=== PATIENT | female | born 1990 | race Caucasian/White ===

== ENCOUNTER 2020-05-23 08:37 | Outpatient (REF) | payer OTHER, SELFPAY ==
[2020-05-23 19:33] LABS: TSH (W/Ref FT4) 2.18 uIU/mL (0.36-3.74)
== END 2020-05-23 08:57 ==
LOC: NCHCN 08:37
PROVIDERS: Visit Provider Physician Assistant
DX: E03.9 Hypothyroidism, unspecified (principal)
CPT/HCPCS: 84443

== ENCOUNTER 2021-09-03 10:10 | Outpatient (REF) | payer BC, SELFPAY ==
[2021-09-03 19:45] LABS: Calculated LDL 79 mg/dL (<100); Cholesterol 165 mg/dL (<200); HDL Cholesterol 78 mg/dL (40-60); Triglyceride 44 mg/dL (<150)
== END 2021-09-03 10:11 | disposition home or self-care (01) ==
LOC: NCHCN 10:10
PROVIDERS: PCP Physician Assistant; Visit Provider Physician Assistant
DX: Z13.220 Encounter for screening for lipoid disorders (principal)
CPT/HCPCS: 80061

== ENCOUNTER 2021-12-14 15:12 | Outpatient (CLI) | payer BC, SELFPAY ==
[2021-12-14 09:23] LABS: FREE T4 0.92 ng/dL (0.76-1.46); TSH 2.76 uIU/mL (0.36-3.74)
== END 2021-12-14 15:13 | disposition home or self-care (01) ==
LOC: LBO 15:12
PROVIDERS: PCP Physician Assistant; Visit Provider Nurse Practitioner Family
DX: E03.9 Hypothyroidism, unspecified (principal)
CPT/HCPCS: 36415; 84439; 84443

== ENCOUNTER 2022-02-01 01:23 | Outpatient (CLI) | payer BC, SELFPAY ==
[2022-02-01 10:56] LABS: Abs Immature Grans 0.02 10^3/uL (0.0-0.06); Absolute Basophil Count 0.03 10^3/uL (0.0-0.2); Absolute Eosinophil Count 0.11 10^3/uL (0.0-0.7); Absolute Lymphocyte Count 1.58 10^3/uL (1.2-3.4); Absolute Neutrophil Count 5.62 10^3/uL (1.2-6.7); Basophils % 0.4; Eosinophils % 1.4; HCT 36.7 % (36.0-46.0); HGB 12.8 g/dL (11.2-15.7); Immature Grans % 0.3; Lymphocytes % 20.1; MCH 31.4 pg (27.0-33.0); MCHC 34.9 % (32.0-36.0); MCV 90 fL (80-95); MPV 9.4 fL (8.0-11.0); Monocytes % 6.4; Neutrophils % 71.4; Platelet Count 267 10^3/uL (130-400); RBC 4.08 10^6/uL (3.93-5.22); RDW 11.4 % (11.7-14.6); RDW-SD 37.2 fL; WBC 7.86 10^3/uL (4.4-10.8)
[2022-02-01 11:29] LABS: TSH 0.81 uIU/mL (0.36-3.74)
[2022-02-01 18:19] LABS: Thyroperoxidase Antibody <28 U/mL (<=60)
[2022-02-02 09:04] LABS: HIV-1/2 Ag & Ab Screen Negative (Negative)
[2022-02-04 10:01] LABS: Hepatitis B Surface Ag Negative (Negative)
[2022-02-04 10:31] LABS: Hepatitis C Ab w Rflx HCV PCR Negative (Negative)
[2022-02-04 11:05] LABS: Varicella IgG Antibody Positive (See Note)
[2022-02-04 11:20] LABS: Rubella IgG Ab (UVM) Positive (See Note)
[2022-02-04 15:35] LABS: Syphilis IgG w/Reflex Nonreactive (Nonreactive)
[2022-02-06 07:11] LABS: Specimen WB Whole Blood
[2022-02-07 08:53] LABS: Specimen WB Whole Blood
== END 2022-02-01 01:24 | disposition home or self-care (01) ==
LOC: LBO 01:23
PROVIDERS: Advanced Practice Midwife; PCP Physician Assistant; Visit Provider Obstetrics & Gynecology
DX: Z34.91 Encounter for supervision of normal pregnancy, unspecified, first trimester; R79.89 Other specified abnormal findings of blood chemistry
CPT/HCPCS: 36415; 81329; 86787; 86803; 86850; 86900; 86901; 87340; 87389; 81220; 84439; 84443; 85025; 86376; 86762; 86780

== ENCOUNTER 2022-02-01 18:29 | Outpatient (REF) | payer BC, SELFPAY ==
[2022-02-01 17:26] LABS: *AMPHETAMINES SCREEN URINE Negative (Negative); *BARBITURATES SCREEN URINE Negative (Negative); *BENZODIAZEPINES SCREEN URINE Negative (Negative); Cannabinoids THC Negative (Negative); Cocaine Screen,Urine Negative (Negative); METHADONE URINE SCREEN Negative (Negative); OPIATES URINE SCREEN Negative (Negative)
[2022-02-01 17:31] LABS: Tricyclic Antidepressants Negative (Negative)
[2022-02-04 14:52] LABS: Chlamydia Result Negative (Negative); GC Result Negative (Negative)
[2022-02-08 15:08] LABS: Buprenorphine Negative ng/mL (Cutoff: 5.0); Norbuprenorphine Negative ng/mL (Cutoff: 2.5)
== END 2022-02-01 18:30 | disposition home or self-care (01) ==
LOC: LBN 18:29
PROVIDERS: PCP Physician Assistant; Visit Provider Advanced Practice Midwife
DX: Z34.91 Encounter for supervision of normal pregnancy, unspecified, first trimester (principal)
CPT/HCPCS: 80307; 87491; 87591; 87086

== ENCOUNTER 2022-02-01 19:31 | Outpatient (REF) | payer BC, SELFPAY | END 2022-02-01 19:32 | disposition home or self-care (01) | LOC: LBN 19:31 | PROVIDERS: PCP Physician Assistant; Visit Provider Advanced Practice Midwife ==

== ENCOUNTER 2022-05-24 11:17 | Outpatient (CLI) | payer BC, SELFPAY ==
[2022-05-24 10:17] LABS: HGB 11.2 g/dL (11.2-15.7); MCH 30.7 pg (27.0-33.0); MCHC 33.9 % (32.0-36.0); MCV 90 fL (80-95); MPV 8.8 fL (8.0-11.0); Platelet Count 233 10^3/uL (130-400); RBC 3.65 10^6/uL (3.93-5.22); RDW 11.8 % (11.7-14.6); RDW-SD 38.9 fL; WBC 9.11 10^3/uL (4.4-10.8)
[2022-05-24 10:35] LABS: Glucose,1 Hr (Glucola) 90 mg/dL (80-140)
[2022-05-24 11:17] LABS: FREE T4 0.87 ng/dL (0.76-1.46); TSH 1.21 uIU/mL (0.36-3.74)
== END 2022-05-24 11:18 | disposition home or self-care (01) ==
LOC: LBO 11:19
PROVIDERS: Advanced Practice Midwife; PCP Physician Assistant; Visit Provider Advanced Practice Midwife
DX: Z34.93 Encounter for supervision of normal pregnancy, unspecified, third trimester (principal); E03.9 Hypothyroidism, unspecified
CPT/HCPCS: 36415; 82950; 85027; 86850; 90384; 84439; 84443

== ENCOUNTER 2022-07-24 08:53 | Outpatient (CLI) | payer BC, SELFPAY ==
[2022-07-24 08:59] VITALS: BP 138/76; PULSE 81; TEMP 36.8
[2022-07-24 09:03] VITALS: BP 138/76; PULSE 81
[2022-07-24 09:34] VITALS: BP 132/86; PULSE 74
--- NOTE | 2022-07-24 09:39 | W.OBNST ---
Date of service: 07/24/22 Time of Service: 09:39 NST Evaluation Reason for NST Reasons for Nonstress Test: OTHER, SEE COMMENT Reason for NST Other: headache Gestational Age Gestational Age in Weeks and Days: 36 Weeks and 3Days Test and Monitor Explained Test/Monitor Explained: Test Explained, Monitor Explained and Patient Verbalized Understanding Vital Signs Blood Pressure: 138/76 Pulse: 81 Temperature: 98.2 F Urine Results Urine Protein: Negative Urine Ketones: Negative Urine Glucose: Negative Urine Blood: Negative NST Information Date on Monitor: 07/24/22 Time on Monitor: 08:55 Date off Monitor: 07/24/22 Time off Monitor: 09:33 Total Time on Monitor: 38 NST Interventions: PO Hydration Contraction Frequency: 0 NST Evaluation Patient States Movement: Present FHR Baseline: 140 Variability: Moderate 6-25 bpm Accelerations: 15x15 Decelerations: None NST Results: Reactive Note N/A NST Note Note: NST is done for patient concern of HOLLAND and 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 Denies vision changes, swelling or RUQ pain. Baby is active and more so after PO hydration during NST. Urine protein is negative today. She reports by the time she came in for NST HOLLAND was improving as she took tylenol this morning. Has appointment in office in 2 days. Reviewed warning signs to call for. NST is reactive and reassuring and no BP higher than 140/90 obtained. NST Reviewed and Verified by: Aura Owens
[2022-07-24 09:41] VITALS: BP 138/76; PULSE 81; TEMP 36.8
== END 2022-07-24 09:38 | disposition home or self-care (01) ==
LOC: BCD 08:56 → OBS 08:58
PROVIDERS: PCP Physician Assistant; Visit Provider Advanced Practice Midwife
DX: O26.893 Other specified pregnancy related conditions, third trimester (principal); Z3A.36 36 weeks gestation of pregnancy
CPT/HCPCS: 59025

== ENCOUNTER 2022-07-26 18:02 | Outpatient (REF) | payer BC, SELFPAY ==
[2022-07-26 17:39] LABS: *AMPHETAMINES SCREEN URINE Negative (Negative); *BARBITURATES SCREEN URINE Negative (Negative); *BENZODIAZEPINES SCREEN URINE Negative (Negative); Cannabinoids THC Negative (Negative); Cocaine Screen,Urine Negative (Negative); METHADONE URINE SCREEN Negative (Negative); OPIATES URINE SCREEN Negative (Negative)
[2022-07-26 17:41] LABS: Tricyclic Antidepressants Negative (Negative)
[2022-08-02 11:57] LABS: Buprenorphine Negative ng/mL (Cutoff: 5.0); Norbuprenorphine Negative ng/mL (Cutoff: 2.5)
== END 2022-07-26 18:03 | disposition home or self-care (01) ==
LOC: LBN 18:02
PROVIDERS: Advanced Practice Midwife; PCP Physician Assistant; Visit Provider Advanced Practice Midwife
DX: Z34.90 Encounter for supervision of normal pregnancy, unspecified, unspecified trimester
CPT/HCPCS: 80307; 80348; 87081

== ENCOUNTER 2022-08-09 09:03 | Outpatient (CLI) | payer BC, SELFPAY ==
[2022-08-09 09:13] VITALS: BP 128/86; PULSE 71; TEMP 37
[2022-08-09 09:30] VITALS: BP 128/86; PULSE 71
[2022-08-09 10:00] LABS: COMMENT (LAB VIEW ONLY) 67.38 mg/dL; Prot/Crea Ur Ratio 0.17
--- NOTE | 2022-08-09 10:41 | W.OBNST ---
Date of service: 08/09/22 Time of Service: 10:41 NST Evaluation Reason for NST Reasons for Nonstress Test: GESTATIONAL HYPERTENSION Gestational Age Gestational Age in Weeks and Days: 38 Weeks and 5Days Test and Monitor Explained Test/Monitor Explained: Test Explained, Monitor Explained and Patient Verbalized Understanding Vital Signs Blood Pressure: 128/86 Pulse: 71 Temperature: 98.6 F Urine Results Urine Protein: Negative Urine Ketones: Negative Urine Glucose: Negative Urine Blood: Negative NST Information Date on Monitor: 08/09/22 Time on Monitor: 09:17 Date off Monitor: 08/09/22 Time off Monitor: 09:45 Total Time on Monitor: 28 NST Interventions: None NST Evaluation Patient States Movement: Present FHR Baseline: 135 Variability: Moderate 6-25 bpm Accelerations: 15x15 Decelerations: None NST Results: Reactive Note N/A NST Note Note: Urine prot/creat was 0.17 BP is normotensive Pt denies any sx, PE is nml F/up at regular pn appt in 1 wk NST Reviewed and Verified by: Chelsie Loera
[2022-08-09 10:42] VITALS: BP 128/86; PULSE 71; TEMP 37
== END 2022-08-09 09:45 | disposition home or self-care (01) ==
LOC: BCD 09:03 → OBS 09:11
PROVIDERS: PCP Physician Assistant; Visit Provider Advanced Practice Midwife
DX: O13.3 Gestational [pregnancy-induced] hypertension without significant proteinuria, third trimester (principal); Z3A.38 38 weeks gestation of pregnancy
CPT/HCPCS: 59025; 82565; 84156

== ENCOUNTER 2022-08-22 22:15 | Inpatient (IN) | payer BC, SELFPAY ==
[2022-08-22] VITALS (9 sets, daily range): BP systolic 143–147; BP diastolic 91–93; PULSE 67–84; TEMP 36.8; O2SAT 98–100
[2022-08-22 23:36] LABS: Source Nasal/Nares
[2022-08-22 23:38] LABS: HCT 36.3 % (36.0-46.0); HGB 12.3 g/dL (11.2-15.7); MCH 29.9 pg (27.0-33.0); MCHC 33.9 % (32.0-36.0); MCV 88 fL (80-95); MPV 11.4 fL (8.0-11.0); Platelet Count 162 10^3/uL (130-400); RBC 4.12 10^6/uL (3.93-5.22); RDW 12.4 % (11.7-14.6); RDW-SD 40.2 fL; WBC 14.58 10^3/uL (4.4-10.8)
--- NOTE | 2022-08-22 23:40 | HPE_ITS ---
Date of service: 08/22/22 Time of Service: 23:40 Assessment and Plan Assessment and plan (1) Spontaneous onset of labor: Status: Acute Assessment and plan: Admit to Center. Comfort measures. Covid- 19 test. Anticipate . (2) Gestational hypertension: Status: Acute Assessment and plan: CMP drawn with CBC. Will continue to monitor BP OB-HPI Labor/Delivery History of Present Illness Reason for Visit: Labor Chief Complaint: Uterine Contractions. MIO Calculator Estimated Delivery Date Method Current WG Current Estimate 08/18/22 LMP (Certain) 40w 4d Other Estimates 08/22/22 Ultrasound #1 40w 0d Comments: Janet called at 2100 with a report of regular contractions. She arrived at 2200 at the center in active labor. SVE by RN. She began feeling an urge to push and was re-examined by RN. No cervical change /-1 History of Present Expected Delivery Route/Plan - CNM FOB/ - Sukhjinder Hernandez Doesn't want to know gender, if male if circ GBS neg Specific Issues/Plan 1. Pt's sister has CF; Will do CF testing with initial labs 1a. SMA neg. Pt is CF carrier screen+; FOB tested 02/13 and is negative 2. Hypothyroidism - On Levothyroxine: Check labs q trimester with TPO due to TSH 2.76 2a. TSH -0.81 , T4- 0.91, TPO=nml @ 11 wks (<28) 3. Depression - on Sertraline. Pt decreased her dose from 50 mg to 25 mg qd (03/01) 4. History of abnormal pap -most recent WNL at [facility]. Awaiting records from [facility] 5. Rh neg, Rhogam at 28 weeks done 6. COVID vaccinated x2, declined booster, is required to get booster for work- letter written to decline. 7. BMI 30.0 at initial OB, declines early glucola after informed choice discussion 8. Right vulvar varicosity noted @ 30 wks, advised V2 Supporter [facility] All Active Problems (Updated 08/22/22 @ 23:43 by Aura Worley CNM) Gestational hypertension (Acute) Spontaneous onset of labor (Acute) Cystic fibrosis carrier, antepartum (Acute) Rh negative state in antepartum period (Acute) History of abnormal cervical Pap smear (Acute) Elevated TSH (Acute) (Acute) Acquired hypothy[facility] (Acute) [facility] Medical History (Updated 08/22/22 @ 23:43 by Aura Worley CNM) Asthma Depression Family history of colon cancer Father Dx at 55 and Family history of cystic fibrosis sister Positive test Surgical History (Updated 12/14/21 @ 10:45 by Lizabeth Hernández NP) S/P tonsillectomy and adenoidectomy 2012 Family History (Updated 06/07/22 @ 09:34 by Aura Worley CNM) Father Colon cancer Hypertension Mother [place]'s disease Gestational hypertension Sister Cystic fibrosis Paternal Grandmother Hypothyroid Stomach cancer Paternal Grandfather Stroke Maternal Aunt Hypothyroid Social History Smoking/Tobacco Use Status: Never Smoking risk assessment performed?: Yes Do you feel safe at home: Yes Do you feel safe in your relationship?: Yes History History 1 Para 0 Hx # Term Pregnancies 0 Multiple births 0 Hx # Pregnancies 0 Ectopic pregnancies 0 AB induced 0 Hx Number of Living Children 0 AB spontaneous 0 Meds Allergies and Home Medications Allergies Allergy/AdvReac Type Severity Reaction Status Date / Time Penicillins Allergy rash Verified 08/09/22 08:32 Home Medications Medication Instructions Recorded Confirmed Type prenat.vits,maria teresa,[id number] 1 tab PO DAILY 12/14/21 08/16/22 History sertraline 50 mg tablet 25 mg PO DAILY #30 tabs 03/01/22 08/16/22 Rx albuterol sulfate 90 mcg/actuation 2 puff inhalation Q6H PRN 05/24/22 08/16/22 Rx aerosol inhaler shortness of breath or wheezing #6.7 grams levothyroxine 100 mcg tablet See Rx Instructions .Route 05/24/22 08/16/22 Rx .COMPLEX #30 tabs famotidine 20 mg tablet (Pepcid) 20 mg PO DAILY #60 tabs 07/26/22 08/16/22 Rx Exam Physical Exam Vital signs: Temp Pulse BP Pulse Ox 98.2 F 72 147/93 H 98 08/22/22 23:23 08/22/22 23:23 08/22/22 23:23 08/22/22 23:23 Detailed Labor and Delivery Exam Dilation: 7 Effacement (%): 90 station: -1 Consistency: soft Gruber Score: Cervical Points Exam 0 1 2 3 Dilation Closed 1-2cm 3-4 cm 5-6cm Effacement 0-30% 40-50% 60-70% 80% Consistency Firm Medium Soft Station -3 -2 -1,0 +1,+2 Position Posterior Mid Anterior Amniotic Membrane Status: Intact Monitor Mode: External Contraction Frequency(min): every 2 -3 Contraction Duration(sec): 50 Contraction Intensity: Strong Fetus A Heart Rate Baseline: 130 Monitor Accelerations: 15 X 15 Monitor Decelerations: None Variability: Moderate (6-25 BPM) Presentation: Vertex Categories: Category I Cardiovascular Exam Cardiovascular Exam: Normal Abdominal Exam Abdominal Exam: Normal Exam Exam: Normal Extremities Exam Extremities Exam: Normal Skin Exam Skin Exam: Normal Psychiatric Exam Psychiatric Exam: Normal Risk Assessment Risk for Shoulder Dystocia Historical/Initial OB: POSITIVE FOR: Pre- BMI>30; NEGATIVE FOR: Pelvic Abnormality, Previous Shoulder Dystocia or Previous Macrosomia Delivery Plan @ 36wks: spont labor, Risk for Pre-Eclampsia Date Initiated/Initials: KM Yes, if 2 or more: POSITIVE FOR: Nulliparity; NEGATIVE FOR: Age>= 35 yrs, >10yr btwn pregnancies, BMI>30, ethinicty, Mother/Sister w/ Pre-E or Previous IUGR Risk for Post- Hemorrhage Initial: NEGATIVE FOR: Multiple Gestation, Previous PPH, Known Clotting Deficiency, Grand Multiparity or Anticoagulation Counseled re: Active Management: Yes Risks Reviewed Risks Reviewed Upon Admission: Yes
[2022-08-22 23:55] LABS: ALT 17 U/L (14-59); AST 21 U/L (15-37); Albumin 2.9 g/dL (3.4-5.0); Alkaline Phosphatase 240 U/L (46-116); Anion Gap 12.6 mmol/L (3-11); BUN 12 mg/dL (7-18); Bilirubin, Total 0.2 mg/dL (0.2-1.0); CO2 20.4 mmol/L (21.0-32.0); CREATININE 0.9 mg/dL (0.55-1.02); Calcium 9.2 mg/dL (8.5-10.1); Chloride 101 mmol/L (98-107); Estimated GFR 87.65 (mL/min/1.73m2); Glucose 97 mg/dL (74-106); Potassium 3.9 mmol/L (3.5-5.1); Sodium 134 mmol/L (136-145); Total Protein 6.6 g/dL (6.4-8.2)
[2022-08-23] VITALS (18 sets, daily range): BP systolic 124–192; BP diastolic 62–91; PULSE 63–104; RESP 17; TEMP 36.5–37.1; O2SAT 98–100
[2022-08-23 00:08] LABS: COVID-19 PCR Negative (Negative)
[2022-08-23] MEDS: Oxytocin 10 UNITS/ML VIAL IM (03:10)
[2022-08-23] MEDS: miSOPROStol 200 MCG TAB 400 MCG SL (03:30)
--- NOTE | 2022-08-23 03:33 | PGE_ITS ---
Date of service: 08/23/22 Time of Service: 02:00 Pelvic Exam Dilation: 10 station: +1 Pooling: Positive Contractions Monitor Mode: External Contraction Frequency(min): every 3 min Contraction Duration(sec): 60 Intensity: Strong Fetus A Monitor: Doppler Heart Rate Baseline: 150 Presentation: Vertex Decelerations: None Assessment and Plan Assessment and plan (1) Spontaneous onset of labor: Status: Acute Assessment and plan: Assist with pushing and anticipate . (2) Gestational hypertension: Status: Acute Assessment and plan: BP 130s/80s with relaxation, will continue to monitor. CMP WNL Objective Abnormal lab results 08/22/22 08/22/22 Range/Units 23:24 23:24 WBC 14.58 H (4.4-10.8) 10^3/uL MPV 11.4 H (8.0-11.0) fL Sodium 134 L (136-145) mmol/L Carbon Dioxide 20.4 L (21.0-32.0) mmol/L Anion Gap 12.6 H (3-11) mmol/L Alkaline Phosphatase 240 H (46-116) U/L Albumin 2.9 L (3.4-5.0) g/dL Temp Pulse BP Pulse Ox 98.1 F 93 H 142/66 H 100 08/23/22 03:14 08/23/22 03:22 08/23/22 03:15 08/23/22 03:22 Laboratory Results WBC 14.58 10^3/uL (4.4-10.8) H 08/22/22 23:24 RBC 4.12 10^6/uL (3.93-5.22) 08/22/22 23:24 Hgb 12.3 g/dL (11.2-15.7) 08/22/22 23:24 Hct 36.3 % (36.0-46.0) 08/22/22 23:24 MCV 88 fL (80-95) 08/22/22 23:24 MCH 29.9 pg (27.0-33.0) 08/22/22 23:24 MCHC 33.9 % (32.0-36.0) 08/22/22 23:24 RDW 12.4 % (11.7-14.6) 08/22/22 23:24 Plt Count 162 10^3/uL (130-400) 08/22/22 23:24 MPV 11.4 fL (8.0-11.0) H 08/22/22 23:24 Sodium 134 mmol/L (136-145) L 08/22/22 23:24 Potassium 3.9 mmol/L (3.5-5.1) 08/22/22 23:24 Chloride 101 mmol/L (98-107) 08/22/22 23:24 Carbon Dioxide 20.4 mmol/L (21.0-32.0) L 08/22/22 23:24 Anion Gap 12.6 mmol/L (3-11) H 08/22/22 23:24 BUN 12 mg/dL (7-18) 08/22/22 23:24 Creatinine 0.9 mg/dL (0.55-1.02) 08/22/22 23:24 Est GFR (CKD-EPI 2020) 87.65 (mL/min/1.73m2) 08/22/22 23:24 Glucose 97 mg/dL (74-106) 08/22/22 23:24 Calcium 9.2 mg/dL (8.5-10.1) 08/22/22 23:24 Total Bilirubin 0.2 mg/dL (0.2-1.0) 08/22/22 23:24 AST 21 U/L (15-37) 08/22/22 23:24 ALT 17 U/L (14-59) 08/22/22 23:24 Alkaline Phosphatase 240 U/L (46-116) H 08/22/22 23:24 Total Protein 6.6 g/dL (6.4-8.2) 08/22/22 23:24 Albumin 2.9 g/dL (3.4-5.0) L 08/22/22 23:24 COVID-19 Source Nasal/Nares 08/22/22 23:30 SARS-CoV-2 (PCR) Negative (Negative) 08/22/22 23:30 Patient ABO/Rh O Negative 08/22/22 23:24 Antibody Screen POSITIVE 08/22/22 23:24 Antibody Identification Anti-D 08/22/22 23:24 Subjective Interval history since last seen: Janet progressed well and used the shower and position changes for comfort. She had an urge to push in the shower and returned to bed. She was examined and was 9 cms dilated. Membranes ruptured spontaneously for a moderate amount of clear fluid. She began bearing down and moved to [facility] toilet after she was fully dilated and began pushing actively. Results Hemoglobin/Hematocrit: Hgb 12.3 g/dL (11.2-15.7) 08/22/22 23:24 Hct 36.3 % (36.0-46.0) 08/22/22 23:24 Abnormal Lab Findings: Abnormal Labs 08/22/22 08/22/22 23:24 23:24 WBC 14.58 H MPV 11.4 H Sodium 134 L Carbon Dioxide 20.4 L Anion Gap 12.6 H Alkaline Phosphatase 240 H Albumin 2.9 L
--- NOTE | 2022-08-23 03:38 | OBVDS_ITS ---
Date of service: 08/23/22 Time of Service: 03:38 OB Labor/ Delivery Information Baby A Delivery Delivery Method: Spontaneaous Presentation: Vertex Vertex Position: Left Occipital Anterior Amniotic Fluid: Clear Estimated Blood Loss: 350 Delivery Outcome: Liveborn Infant Transferred: Remains with Mother Note: FHTs 150s during first stage of labor. FHTs 150s in second stage. Janet began pushing well. Second stage huddle was done. Spontaneous delivery of female infant delivered in JADE position. Baby was placed on mother's abdomen and dried and stimulated. She had a pontaneous cry. Cord was clamped and cut by July K[place]. The placenta delivered spontaneously and appears to by intact with a three vessel cord. Pitocin 10 units IM was administered before delivery of the placenta. The perineum was inspected and a first degree vaginal laceration was noted with a superficial left labial extension and bilateral periurethral lacerations . The baby did breastfeed. There was some bright bleeding and cytotec 400 mcg was given PO and straight catheterized for a small amount of urine. After delivery, Mother and baby and father of the baby were stable and bonding well in the delivery room and there were no complications. Post B.P. 142/66. Will continue to assess B.P. readings in the post period. Providers Nurse [employer]: Aura Worley Nurse: July Loera Nurse: Nhi Torres Labor/Delivery Information Number of Babies in Womb: 1 Steroids Given: None Reason Steroids Not Administered: N/A Group Beta Strep: Negative Antibiotics Administered: No Rubella Status: Immune Blood Type: O- Varicella Immunity: Immune Maternal Complications: None Shoulder Dystocia: No Stages of Labor Onset of Labor Date: 08/22/22 Onset of Labor Time: 16:00 ROM Baby A: 08/23/22 ROM Baby A: 01:25 ROM Total Time- Baby A: [id number] Delivery Date-Baby A: 08/23/22 Delivery Time-Baby A: 02:59 Placenta Delivery Date-Baby A: 08/23/22 Placenta Delivery Time-Baby A: 03:09 Labor-Stage 3 Duration: 10 minutes Total Length of Labor-Baby A: 10 hours and 59 minutes Placenta Cultured: No Placenta Status: Delivered Baby A Gender: Female Gestational Status: Term (39-41.6 wks) Gestational Age in Weeks/Days: 40 Weeks and 5 Days Score-1 Minute Interval(Baby A) Heart Rate-1 minute: 100 BPM or Greater Respiratory Effort- 1 minute: Spontaneous/Strong Cry Muscle Tone-1 minute: Active Movement Reflex Response-1 minute: Prompt Response Color-1 minute: Pallor or Cyanosis Total Score-1 minute: 8 Score-5 Minute Interval(Baby A) Heart Rate- 5 minute: 100 BPM or Greater Respiratory Effort-5 minute: Spontaneous/Strong Cry Muscle Tone-5 minute: Active Movement Reflex Response-5 minute: Prompt Response Color-5 minute: Bluish Hands or Feet Total Score- 5 minute: 9 Interventions Repair of Laceration Type: Other (vaginal with superficial left labial extension, bilateral periurethral lacerations not repaired), Laceration Extension: First Degree.
[2022-08-23] MEDS: Hamamelis Leaf/Glycerin 100 EACH BOX PR (04:26)
[2022-08-23] MEDS: Dibucaine 1% 28 GM TUBE TP (04:27)
[2022-08-23] MEDS: Ibuprofen 600 MG TAB PO (15:23)
[2022-08-23] MEDS: Docusate Sodium 100 MG CAP PO (20:06)
[2022-08-24] MEDS: Ibuprofen 600 MG TAB PO (05:47)
[2022-08-24 06:05] LABS: HGB 11.4 g/dL (11.2-15.7); MCH 30.3 pg (27.0-33.0); MCHC 33.5 % (32.0-36.0); MCV 90 fL (80-95); MPV 11.2 fL (8.0-11.0); Platelet Count 152 10^3/uL (130-400); RBC 3.76 10^6/uL (3.93-5.22); RDW-SD 42.5 fL; WBC 10.74 10^3/uL (4.4-10.8)
[2022-08-24 08:00] VITALS: BP 138/94; PULSE 68; RESP 16; TEMP 36.4; O2SAT 99
--- NOTE | 2022-08-24 10:35 | DSE_ITS ---
Date of service: 08/24/22 Time of Service: 10:36 DS: Diagnosis Discharge Diagnosis (1) Spontaneous onset of labor: Status: Acute Asessment and Plan: Janet requests discharge at 24 hours of age. Her baby is discharged. Caring for baby independently. Pain is managed well with oral analgesics. Voiding without difficulty. with some pain and trauma to her nipples A - stable mother and baby , Post day 1, History of depression P - Discharge to home today. Routine post instructions. [facility] (2) Gestational hypertension: Status: Acute Asessment and Plan: BP yesterday was 124-138/62-88. BP last evening was 134/91 and this morning 138/94. We reviewed signs of preeclampsia. Repeat BP was 134/87. Janet was instructed to come to the [facility] for BP check in 3 days. (3) disorder, condition: Status: Acute Asessment and Plan: Janet has been experiencing bleeding of her nipples but was able to latch the baby well today without pain or further trauma. She declines visit with Mary Vigil today. She feels confident with feeding plan reviewed with Mary yesterday. She is pumping and using a nipple shield for sore nipples. We discussed positioning to avoid sore nipples and all purpose nipple cream if no imrpovement (4) Depression: Asessment and Plan: History of depression treated with sertraline 25 mg daily. We Discussed signs of post depression. Janet would like to continue sertraline 25 mg po daily and will consider increasing dose if she experiences depression symptoms. Discharge Plan Disposition Patient Disposition: Home Condition: Good Discharge Details Reason For Visit: Labor Admit Date/Time: 08/22/22 22:15 Admit Provider: Aura Worley Attending Provider: Aura Worley Primary Care Provider: Car Garibay Home Meds and New Rx's Prescriptions: No Action prenat.vits,maria teresa,[id number] Tablet 1 tab PO DAILY sertraline 50 mg tablet 25 mg PO DAILY Qty: 30 3RF levothyroxine 100 mcg tablet See Rx Instructions .ROUTE .COMPLEX Qty: 30 3RF Dose Instruction: TAKE ONE TABLET BY MOUTH EVERY DAY Rx Instructions: TAKE ONE TABLET BY MOUTH EVERY DAY albuterol sulfate 90 mcg/actuation HFA aerosol inhaler 2 puff inhalation Q6H PRN (Reason: shortness of breath or wheezing) Qty: 6.7 0RF famotidine [Pepcid] 20 mg tablet 20 mg PO DAILY Qty: 60 2RF Discharge Instructions Stand Alone Forms: BC Instructions, BC Post Vaginal Deliver Activity:: Activity as Tolerated Equipment/Supplies:: No Equipment Needed Diet:: As Tolerated Discharge Orders Discharge Orders: Discharge Order (Routine); Ordered 08/24/22 Ordered By: Aura Worley OB:DS Summary Summary Vaginal Delivery Method: Spontaneaous Laceration Description: Other (vaginal with superficial left labial extension, bilateral periurethral lacerations not repaired) Laceration Extension: First Degree Contraception Discussed Contraception Discussed: Yes Contraceptive Plan: Control Pill/Patch, Leopold Gender-Baby A: Female weight: 7 lb 13.575 oz Status at Discharge Functional status at discharge: independent ambulation Overall status at discharge: patient is back to baseline Mental Status: mental status grossly normal Speech and Movement: speech and movement normal Mood: congruent mood Affect: normal affect Exam Physical Exam Vital signs: Temp Pulse Resp BP Pulse Ox 97.5 F L 68 16 138/94 H 99 08/24/22 08:00 08/24/22 08:00 08/24/22 08:00 08/24/22 08:00 08/24/22 08:00 Neck Exam Neck Exam: Normal Respiratory Exam Respiratory Exam: Normal Cardiovascular Exam Cardiovascular Exam: Normal Abdominal Exam Comments: non tender Fundal Exam Fundus: Below Umbilicus and Firm (down 2) Rectal Exam Comments: small cluster of hemorrhoids Exam Perineum: Bruising and Intact Comments: no edema. Extremities Exam Extremity Exam: Edema (trace) Skin Exam Skin Exam: Abnormal (petechii on face and in sclera bilaterally related to intense pushing) Psychiatric Exam Psychiatric Exam: Normal PFSH All Active Problems (Updated 08/24/22 @ 10:39 by Aura Worley CNM) disorder, condition (Acute) Gestational hypertension (Acute) Spontaneous onset of labor (Acute) Cystic fibrosis carrier, antepartum (Acute) Rh negative state in antepartum period (Acute) History of abnormal cervical Pap smear (Acute) Elevated TSH (Acute) (Acute) Acquired hypothyroidism (Acute) treated by Car Garib[facility]. Medical History (Updated 08/24/22 @ 10:39 by Aura Worley CNM) Asthma Depression Family history of colon cancer Father Dx at 55 and Family history of cystic fibrosis sister Positive test Surgical History (Updated 12/14/21 @ 10:45 by Lizabeth Hernández NP) S/P tonsillectomy and adenoidectomy 2013 Family History (Updated 06/07/22 @ 09:34 by Aura Worley CNM) Father Colon cancer Hypertension Mother [place]'s disease Gestational hypertension Sister Cystic fibrosis Paternal Grandmother Hypothyroid Stomach cancer Paternal Grandfather Stroke Maternal Aunt Hypothyroid Social History Smoking/Tobacco Use Status: Never Smoking risk assessment performed?: Yes Do you feel safe at home: Yes Do you feel safe in your relationship?: Yes History History 1 Para 0 Hx # Term Pregnancies 0 Multiple births 0 Hx # Pregnancies 0 Ectopic pregnancies 0 AB induced 0 Hx Number of Living Children 0 AB spontaneous 0 DS: Data Vitals/I&O Vitals and I&O: Vital Signs Temperature 97.5 F L 08/24/22 08:00 Pulse 68 08/24/22 08:00 Pulse Rhythm Regular 08/24/22 08:00 Respiratory Rate 16 08/24/22 08:00 Respiratory Depth Normal 08/23/22 19:20 Blood Pressure 138/94 H 08/24/22 08:00 Blood Pressure Mean 108 08/24/22 08:00 Pulse Oximetry 99 08/24/22 08:00 Pain Level 2 08/24/22 05:47 Intake & Output 08/23/22 08/23/22 08/24/22 11:59 23:59 11:59 Output Total 1800 / 1800 Balance -1800 / -1800 Output: Urine 1800 / 1800 Data Completed and Pending Labs on day of discharge: Labs from last 24 hours 08/24/22 08/22/22 05:42 23:24 WBC 10.74 RBC 3.76 L Hgb 11.4 Hct 34.0 L MCV 90 MCH 30.3 MCHC 33.5 RDW 13.0 Plt Count 152 MPV 11.2 H Patient ABO/Rh O Negative Antibody Screen POSITIVE Antibody Identification Anti-D Rhogam Unit Number [id number] Unit Expiration Date 07/26/2023 Product Lot # [id number]
[2022-08-24 10:39] VITALS: BP 134/87
[2022-08-24 12:05] VITALS: BP 132/89
== END 2022-08-24 13:34 | disposition home or self-care (01) | DRG 806 ==
LOC: OBS 22:52
PROVIDERS: Admitting Provider Advanced Practice Midwife; PCP Physician Assistant; Visit Provider Advanced Practice Midwife
DX: O14.94 Unspecified pre-eclampsia, complicating childbirth (principal); O36.0930 Maternal care for other rhesus isoimmunization, third trimester, not applicable or unspecified; Z37.0 Single live birth; Z3A.40 40 weeks gestation of pregnancy; O87.8 Other venous complications in the puerperium; O99.284 Endocrine, nutritional and metabolic diseases complicating childbirth; E03.9 Hypothyroidism, unspecified; O99.344 Other mental disorders complicating childbirth; F32.A Depression, unspecified; O70.0 First degree perineal laceration during delivery; O99.52 Diseases of the respiratory system complicating childbirth; J45.909 Unspecified asthma, uncomplicated; O75.89 Other specified complications of labor and delivery; Z14.1 Cystic fibrosis carrier; O92.79 Other disorders of lactation
CPT/HCPCS: 36415; 80053; 85027; 85461; 86850; 86900; 86901; 87635; 90384; 86870; G0378; J2590; J2790

== ENCOUNTER 2022-08-26 13:55 | Outpatient (CLI) | payer BC, SELFPAY ==
[2022-08-26 13:41] LABS: HCT 33.4 % (36.0-46.0); HGB 11.3 g/dL (11.2-15.7); MCH 30.3 pg (27.0-33.0); MCHC 33.8 % (32.0-36.0); MCV 90 fL (80-95); MPV 9.6 fL (8.0-11.0); Platelet Count 249 10^3/uL (130-400); RBC 3.73 10^6/uL (3.93-5.22); RDW 12.8 % (11.7-14.6); RDW-SD 41.8 fL; WBC 10.43 10^3/uL (4.4-10.8)
[2022-08-26 13:56] LABS: ALT 53 U/L (14-59); AST 65 U/L (15-37); Albumin 2.8 g/dL (3.4-5.0); Alkaline Phosphatase 143 U/L (46-116); Anion Gap 7.3 mmol/L (3-11); BUN 13 mg/dL (7-18); Bilirubin, Total 0.2 mg/dL (0.2-1.0); CO2 27.7 mmol/L (21.0-32.0); CREATININE 0.8 mg/dL (0.55-1.02); Chloride 105 mmol/L (98-107); Estimated GFR 100.96 (mL/min/1.73m2); Glucose 84 mg/dL (74-106); Potassium 4.1 mmol/L (3.5-5.1); Sodium 140 mmol/L (136-145); Total Protein 6.6 g/dL (6.4-8.2)
== END 2022-08-26 13:56 | disposition home or self-care (01) ==
LOC: LBO 13:56
PROVIDERS: PCP Physician Assistant; Visit Provider Advanced Practice Midwife
DX: O13.5 Gestational [pregnancy-induced] hypertension without significant proteinuria, complicating the puerperium (principal)
CPT/HCPCS: 36415; 80053; 85027

== ENCOUNTER 2022-08-27 10:12 | Outpatient (CLI) | payer BC, SELFPAY ==
[2022-08-27] VITALS (8 sets, daily range): BP systolic 117–161; BP diastolic 74–93; PULSE 68–80
[2022-08-27 10:35] LABS: HCT 35.5 % (36.0-46.0); HGB 11.9 g/dL (11.2-15.7); MCH 30.3 pg (27.0-33.0); MCHC 33.5 % (32.0-36.0); MCV 90 fL (80-95); MPV 9.4 fL (8.0-11.0); Platelet Count 256 10^3/uL (130-400); RBC 3.93 10^6/uL (3.93-5.22); RDW 12.9 % (11.7-14.6); RDW-SD 41.9 fL; WBC 8.57 10^3/uL (4.4-10.8)
[2022-08-27 10:51] LABS: ALT 47 U/L (14-59); AST 45 U/L (15-37); Alkaline Phosphatase 146 U/L (46-116); Anion Gap 9.7 mmol/L (3-11); BUN 11 mg/dL (7-18); Bilirubin, Total 0.3 mg/dL (0.2-1.0); CO2 25.3 mmol/L (21.0-32.0); CREATININE 0.8 mg/dL (0.55-1.02); Calcium 9.1 mg/dL (8.5-10.1); Chloride 105 mmol/L (98-107); Estimated GFR 100.96 (mL/min/1.73m2); Glucose 71 mg/dL (74-106); Potassium 4.1 mmol/L (3.5-5.1); Sodium 140 mmol/L (136-145); Uric Acid 5.7 mg/dL (2.6-6.0)
--- NOTE | 2022-08-27 11:18 | W.PM.HP.N ---
Date of service: 08/27/22 Time of Service: 11:18 Assessment and Plan Assessment and plan (1) Gestational hypertension: Status: Acute Assessment and plan: Admit to observation to monitor BP. Consultation with Dr Mcgill and labetalol 200 mg BID was recommended. Continue to assess response to medication. History of Present Illness History of Present Illness Chief Complaint: hypertension, 4 days post Narrative: Janet is here for B.P. evaluation. She was seen at the [facility] office yesterday for BP check and labs. AST was elevated at 65. All other labs were WNL. She returns today for BP check and labs.. AST has decreased to 45 today. Other labs are WNL. BP today was 145/88 on arrival. She became teary-eyed due to the stress and overwhelmed feeling she has been experiencing about her B.P. Follow up B.P.s were 161/93 and 153/91. [facility] All Active Problems (Updated 08/27/22 @ 12:14 by Kala Mcgill DO) Pre-eclampsia affecting puerperium (Acute) disorder, condition (Acute) Gestational hypertension (Acute) Cystic fibrosis carrier, antepartum (Acute) Rh negative state in antepartum period (Acute) History of abnormal cervical Pap smear (Acute) Elevated TSH (Acute) (Acute) Acquired hypothyroidism (Acute) [facility] Medical History (Updated 08/27/22 @ 12:14 by Kala Mcgill DO) Asthma Depression Family history of colon cancer Father Dx at 55 and Family history of cystic fibrosis sister Positive test Surgical History (Updated 12/14/21 @ 10:45 by Lizabeth Hernández NP) S/P tonsillectomy and adenoidectomy 2013 Family History (Updated 06/07/22 @ 09:34 by Aura Worley CNM) Father Colon cancer Hypertension Mother [place]'s disease Gestational hypertension Sister Cystic fibrosis Paternal Grandmother Hypothyroid Stomach cancer Paternal Grandfather Stroke Maternal Aunt Hypothyroid Social History Smoking/Tobacco Use Status: Never Smoking risk assessment performed?: Yes Do you feel safe at home: Yes Do you feel safe in your relationship?: Yes History History 1 Para 0 Hx # Term Pregnancies 0 Multiple births 0 Hx # Pregnancies 0 Ectopic pregnancies 0 AB induced 0 Hx Number of Living Children 0 AB spontaneous 0 Meds Allergies and Home Medications Allergies Allergy/AdvReac Type Severity Reaction Status Date / Time Penicillins Allergy rash Verified 08/26/22 13:14 Home Medications Medication Instructions Recorded Confirmed Type prenat.vits,maria teresa,[id number] 1 tab PO DAILY 12/14/21 08/27/22 History sertraline 50 mg tablet 25 mg PO DAILY #30 tabs 03/01/22 08/27/22 Rx albuterol sulfate 90 mcg/actuation 2 puff inhalation Q6H PRN 05/24/22 08/27/22 Rx aerosol inhaler shortness of breath or wheezing #6.7 grams levothyroxine 100 mcg tablet See Rx Instructions .Route 05/24/22 08/27/22 Rx .COMPLEX #30 tabs famotidine 20 mg tablet (Pepcid) 20 mg PO DAILY #60 tabs 07/26/22 08/27/22 Rx labetalol 200 mg tablet 200 mg PO BID #60 tabs 08/27/22 Rx Exam Chest Breast inspection: abnormal inspection of the breast (nipple abrasions bilaterally. ) Resp Auscultation: clear to auscultation bilaterally Cardio Rate: regular rate Rhythm: regular rhythm Extrem Right upper extremity: no edema Left upper extremity: no edema Right lower extremity: no edema Left lower extremity: no edema Results Labs 08/27/22 10:27 08/27/22 10:27 Labs: Laboratory Results - last 24 hr 08/27/22 08/27/22 10:27 10:27 WBC 8.57 RBC 3.93 Hgb 11.9 Hct 35.5 L MCV 90 MCH 30.3 MCHC 33.5 RDW 12.9 Plt Count 256 MPV 9.4 Sodium 140 Potassium 4.1 Chloride 105 Carbon Dioxide 25.3 Anion Gap 9.7 BUN 11 Creatinine 0.8 Est GFR (CKD-EPI 2020) 100.96 Glucose 71 L Uric Acid 5.7 Calcium 9.1 Total Bilirubin 0.3 AST 45 H ALT 47 Alkaline Phosphatase 146 H Total Protein 7.0 Albumin 3.0 L Last Vital Signs Pulse 68 08/27/22 11:10 BP 153/91 H 08/27/22 11:10 Time Spent Time spent with Patient: 55-74 minutes Time was spent: preparing to see the patient(eg.review tests), obtaining and/or reviewing separately otained hiistory, ordering medications,tests, procedures, referring, communicating with other health vp care management, indepentently interpreting results, counseling the patient and care coordination
[2022-08-27] MEDS: Labetalol 100 MG TAB 200 MG PO (11:29)
--- NOTE | 2022-08-27 12:10 | W.OBCONSULT ---
Date of service: 08/27/22 Time of Service: 12:10 Assessment and Plan Assessment and plan (1) Pre-eclampsia affecting puerperium: Status: Acute Assessment and plan: Patient has had elevated blood pressures and elevated liver enzymes which are improving. She did have 1 severe range blood pressure today for which she has now started labetalol, 200 mg. We do lengthy conversation today regarding hypertensive disorders of including but not limited to gestational hypertension, preeclampsia with and without severe features. At this point, in light of the fact that she is 4 days , with improving liver enzymes, I would encourage starting antihypertensive medications. She was given her first dose of labetalol, 200 mg here in the hospital. We will monitor her blood pressure. If it remains stable, she will be discharged to home with close interval follow-up. All questions were answered. Risks were discussed at length. History of Present Illness History of Present Illness Chief Complaint: preeclampsia Narrative: Patient is a 32-year-old female who is 4 days status post vaginal delivery. She did have some mildly elevated blood pressures towards the end of her , and is seen in the center today. She was seen yesterday for blood pressure check, and laboratory studies. At that time, she was noted to have an elevation in her liver enzymes. She is seen today for repeat blood pressure check and repeat laboratory studies. Her liver enzymes have improved, though she did have a severe range blood pressure in the 160s over 90s. In light of this and review of her history, recommendations are made. Consults Consult date: 08/27/22 Review of Systems Narrative: Overall patient is feeling well. She denies cephalgia, visual changes, epigastric pain, nausea, vomiting, changes in bowel or bladder function. She has the appropriate fatigue and is sleeping somewhat poorly. Constitutional Constitutional: Reports as per HPI and Denies headache(s) Eyes Eyes: Reports system reviewed and no additional complaints, except as documented, Denies blurry vision, Denies change in vision and Denies diplopia ENT Ears, Nose, Mouth, and Throat: Denies headache(s) Cardiovascular Cardiovascular: Reports as per HPI and Reports system reviewed and no additional complaints, except as documented Respiratory Respiratory: Reports system reviewed and no additional complaints, except as documented and Denies cough Gastrointestinal Gastrointestinal: Reports system reviewed and no additional complaints, except as documented Neurologic Neurologic: Reports system reviewed and no additional complaints, except as documented, Reports as per HPI and Denies headache(s) Psychiatric Psychiatric: Reports system reviewed and no additional complaints, except as documented, Reports as per HPI, Reports abnormal sleep pattern and Reports anxiety PFSH All Active Problems (Updated 08/27/22 @ 12:14 by Kala Mcgill DO) Pre-eclampsia affecting puerperium (Acute) disorder, condition (Acute) Gestational hypertension (Acute) Cystic fibrosis carrier, antepartum (Acute) Rh negative state in antepartum period (Acute) History of abnormal cervical Pap smear (Acute) Elevated TSH (Acute) (Acute) [facility]quired [facility]Acute) [facility] Medical History (Updated 08/27/22 @ 12:14 by Kala Mcgill DO) Asthma Depression Family history of colon cancer Father Dx at 55 and Family history of cystic fibrosis sister Positive test Surgical History (Updated 12/14/21 @ 10:45 by Lizabeth Hernández NP) S/P tonsillectomy and adenoidectomy 2013 Family History (Updated 06/07/22 @ 09:34 by Aura Worley CNM) Father Colon cancer Hypertension Mother [place]'s disease Gestational hypertension Sister Cystic fibrosis Paternal Grandmother Hypothyroid Stomach cancer Paternal Grandfather Stroke Maternal Aunt Hypothyroid Social History Smoking/Tobacco Use Status: Never Smoking risk assessment performed?: Yes Do you feel safe at home: Yes Do you feel safe in your relationship?: Yes History History 1 Para 0 Hx # Term Pregnancies 0 Multiple births 0 Hx # Pregnancies 0 Ectopic pregnancies 0 AB induced 0 Hx Number of Living Children 0 AB spontaneous 0 Exam Const General: cooperative, healthy appearing, comfortable and no acute distress HENMT Head: normal to inspection Eyes Sclera: scleral abnormality (Broken blood vessels bilaterally) Pupils: PERRL Resp Effort & Inspection: normal respiratory effort and no cough Cardio Rate: regular rate Rhythm: regular rhythm Neuro General: patient alert, patient awake, patient oriented x3, CN's II-XI intact bilaterally and deep tendon reflexes 2+ bilaterally Extrem General: normal to inspection and no clubbing, cyanosis or edema Results Last Vital Signs Pulse 78 08/27/22 12:00 BP 149/87 H 08/27/22 12:00 Labs 08/27/22 10:27 08/27/22 10:27 Labs: Laboratory Results - last 24 hr 08/27/22 08/27/22 10:27 10:27 WBC 8.57 RBC 3.93 Hgb 11.9 Hct 35.5 L MCV 90 MCH 30.3 MCHC 33.5 RDW 12.9 Plt Count 256 MPV 9.4 Sodium 140 Potassium 4.1 Chloride 105 Carbon Dioxide 25.3 Anion Gap 9.7 BUN 11 Creatinine 0.8 Est GFR (CKD-EPI 2020) 100.96 Glucose 71 L Uric Acid 5.7 Calcium 9.1 Total Bilirubin 0.3 AST 45 H ALT 47 Alkaline Phosphatase 146 H Total Protein 7.0 Albumin 3.0 L
--- NOTE | 2022-08-27 13:04 | DSE_ITS ---
Date of service: 08/27/22 Time of Service: 13:04 DS: Diagnosis Discharge Diagnosis (1) Gestational hypertension: Status: Acute Asessment and Plan: Dr. Mcgill discussed gestational hypertension with Janet and the benefits of treating high blood pressure at this time including having a beneficial effect on her mood. Janet took the labetalol 200 mg po and BP monitoring continued while baby Chay's weight was checked and Janet received assistance by Mary Vigil with difficulties and sore nipples. Repeat BP 117/74 and 124/75. Janet was instructed to return home and take labetalol BID and return to the center tomorrow for repeat BP testing. Janet was reassured by the decrease in liver AST today. Signs of post depression discussed and the improtance of sleep. Janet prefers to stay on 25 mg dose of sertraline and she hopes to eventually wean off the medication. Discharge Plan Disposition Patient Disposition: Home Discharge Details Reason For Visit: Blood pressure Attending Provider: Aura Worley Primary Care Provider: Car Garibay Home Meds and New Rx's Prescriptions: Continued prenat.vits,maria teresa,[id number] Tablet 1 tab PO DAILY sertraline 50 mg tablet 25 mg PO DAILY Qty: 30 3RF levothyroxine 100 mcg tablet See Rx Instructions .ROUTE .COMPLEX Qty: 30 3RF Dose Instruction: TAKE ONE TABLET BY MOUTH EVERY DAY Rx Instructions: TAKE ONE TABLET BY MOUTH EVERY DAY albuterol sulfate 90 mcg/actuation HFA aerosol inhaler 2 puff inhalation Q6H PRN (Reason: shortness of breath or wheezing) Qty: 6.7 0RF famotidine [Pepcid] 20 mg tablet 20 mg PO DAILY Qty: 60 2RF labetalol 200 mg tablet 200 mg PO BID Qty: 60 2RF Discharge Instructions Activity:: Activity as Tolerated Activity:: Activity as Tolerated Equipment/Supplies:: No Equipment Needed Discharge Orders Discharge Orders: Discharge Order (Routine); Ordered 08/27/22 Ordered By: Aura Worley DS: Summary Time Spent with Patient providing and/or coordinating discharge services: Less than 30 minutes Status at Discharge Functional status at discharge: independent ambulation Overall status at discharge: patient is back to baseline Mental Status: mental status grossly normal Speech and Movement: speech and movement normal Mood: congruent mood Affect: normal affect Exam Psych Mental Status: mental status grossly normal Speech and Movement: speech and movement normal Mood: congruent mood Affect: normal affect DS: Data Vitals/I&O Vitals and I&O: Vital Signs Pulse 68 08/27/22 12:47 Blood Pressure 124/75 08/27/22 12:47 Data Completed and Pending Labs on day of discharge: Labs from last 24 hours 08/27/22 08/27/22 10:27 10:27 WBC 8.57 RBC 3.93 Hgb 11.9 Hct 35.5 L MCV 90 MCH 30.3 MCHC 33.5 RDW 12.9 Plt Count 256 MPV 9.4 Sodium 140 Potassium 4.1 Chloride 105 Carbon Dioxide 25.3 Anion Gap 9.7 BUN 11 Creatinine 0.8 Est GFR (CKD-EPI 2020) 100.96 Glucose 71 L Uric Acid 5.7 Calcium 9.1 Total Bilirubin 0.3 AST 45 H ALT 47 Alkaline Phosphatase 146 H Total Protein 7.0 Albumin 3.0 L PFSH All Active Problems (Updated 08/27/22 @ 12:14 by Kala Mcgill DO) Pre-eclampsia affecting puerperium (Acute) disorder, condition (Acute) Gestational hypertension (Acute) Cystic fibrosis carrier, antepartum (Acute) Rh negative state in antepartum period (Acute) History of abnormal cervical Pap smear (Acute) Elevated TSH (Acute) (Acute) [facility]quired [facility]ute) [facility] Medical History (Updated 08/27/22 @ 12:14 by Kala Mcgill DO) Asthma Depression Family history of colon cancer Father Dx at 55 and Family history of cystic fibrosis sister Positive test Surgical History (Updated 12/14/21 @ 10:45 by Lizabeth Hernández NP) S/P tonsillectomy and adenoidectomy 2013 Family History (Updated 06/07/22 @ 09:34 by Aura Worley CNM) Father Colon cancer Hypertension Mother [place]'s disease Gestational hypertension Sister Cystic fibrosis Paternal Grandmother Hypothyroid Stomach cancer Paternal Grandfather Stroke Maternal Aunt Hypothyroid Social History Smoking/Tobacco Use Status: Never Smoking risk assessment performed?: Yes Do you feel safe at home: Yes Do you feel safe in your relationship?: Yes History History 1 Para 0 Hx # Term Pregnancies 0 Multiple births 0 Hx # Pregnancies 0 Ectopic pregnancies 0 AB induced 0 Hx Number of Living Children 0 AB spontaneous 0 Time Spent with Patient Time Spent with Patient: 45-69 minutes Time was spent: preparing to see the patient(eg.review tests), obtaining and/or reviewing separately otained hiistory, ordering medications,tests, procedures, referring, communicating with other health care transition mgr, indepentently interpreting results, counseling the patient and care coordination
== END 2022-08-27 13:00 | disposition home or self-care (01) ==
LOC: BCD 10:14 → OBS 10:16
PROVIDERS: PCP Physician Assistant; Visit Provider Advanced Practice Midwife
DX: O14.95 Unspecified pre-eclampsia, complicating the puerperium (principal); O13.9 Gestational [pregnancy-induced] hypertension without significant proteinuria, unspecified trimester
CPT/HCPCS: 36415; 80053; 85027; 99211; 84550; G0378

== ENCOUNTER 2022-08-28 09:02 | Outpatient (CLI) | payer BC, SELFPAY ==
[2022-08-28 12:10] VITALS: BP 121/79; PULSE 71
== END 2022-08-28 12:55 | disposition home or self-care (01) ==
LOC: BCD 09:06 → OBS 11:57
PROVIDERS: PCP Physician Assistant; Visit Provider Advanced Practice Midwife
CPT/HCPCS: 99211

== ENCOUNTER 2022-08-31 05:36 | Outpatient (CLI) | payer BC, SELFPAY ==
[2022-08-31 11:15] VITALS: BP 139/89
[2022-08-31 11:36] VITALS: BP 122/83
--- NOTE | 2022-08-31 11:52 | PGE_ITS ---
Date of Service Date of service: 08/31/22 Time of Service: 11:52 Assessment and Plan Assessment and plan (1) History of gestational hypertension: Status: Acute Assessment and plan: Normotensive today Unmedicated now gHTN resolving, F/up in 1 week at 2 wk appt with production generalist Call for concerns, [place], visual changes, RUQ pain, syncopal episodes (2) disorder, condition: Status: Acute Assessment and plan: Nipples healing, baby gaining weight No pumping needed, breast exam nml Subjective Subjective Interval history since last seen: No recurrence of hypotensive episode that she had yesterday. Feeling very well today, stopped labetalol dosing yesterday. is going very well, slept well last night, nipples are healing. Exam Const General: cooperative, healthy appearing, comfortable, no acute distress, well developed and well groomed Nutritional Appearance: average body habitus and well nourished Orientation: alert, awake and oriented x3 Eyes Other: right corneal hemorrhage is decreasing, no visual compromise reported Chest Chest: normal inspection of the chest and normal palpation of entire chest wall Breast inspection: normal inspection of the breasts and Other (nipples healing, left nipple with scab) Breast palpation: normal palpation of the breasts Resp Effort & Inspection: normal respiratory effort and able to speak in complete sentences Cardio Rate: regular rate Rhythm: regular rhythm General: deferred Extrem General: normal to inspection, full ROM and normal gait Psych Appearance: grossly normal and well kempt Mental Status: mental status grossly normal Speech and Movement: speech and movement normal and speech clear Mood: congruent mood Affect: normal affect Objective Last Vital Signs BP 122/83 08/31/22 11:36 Time Spent with Patient Time Spent with Patient: <25 minutes Time was spent: preparing to see the patient(eg.review tests), obtaining and/or reviewing separately otained hiistory, indepentently interpreting results and counseling the patient
== END 2022-08-31 11:45 | disposition home or self-care (01) ==
LOC: BCD 05:38
PROVIDERS: PCP Physician Assistant; Visit Provider Advanced Practice Midwife
CPT/HCPCS: 99211

== ENCOUNTER 2022-09-05 03:17 | Outpatient (CLI) | payer BC, SELFPAY ==
[2022-09-05 11:52] LABS: HCT 37.7 % (36.0-46.0); HGB 12.6 g/dL (11.2-15.7); MCH 30.1 pg (27.0-33.0); MCHC 33.4 % (32.0-36.0); MCV 90 fL (80-95); MPV 8.4 fL (8.0-11.0); Platelet Count 359 10^3/uL (130-400); RBC 4.19 10^6/uL (3.93-5.22); RDW 12.4 % (11.7-14.6); RDW-SD 40.6 fL
[2022-09-05 12:21] LABS: ALT 22 U/L (14-59); AST 20 U/L (15-37); Albumin 3.2 g/dL (3.4-5.0); Alkaline Phosphatase 111 U/L (46-116); BUN 16 mg/dL (7-18); Bilirubin, Total 0.3 mg/dL (0.2-1.0); CREATININE 0.9 mg/dL (0.55-1.02); Calcium 8.9 mg/dL (8.5-10.1); Chloride 104 mmol/L (98-107); Estimated GFR 87.65 (mL/min/1.73m2); Glucose 86 mg/dL (74-106); Potassium 4.1 mmol/L (3.5-5.1); Sodium 140 mmol/L (136-145); Total Protein 7.2 g/dL (6.4-8.2)
== END 2022-09-05 03:18 | disposition home or self-care (01) ==
LOC: LBO 03:17
PROVIDERS: Advanced Practice Midwife; PCP Physician Assistant; Visit Provider Advanced Practice Midwife
DX: O13.5 Gestational [pregnancy-induced] hypertension without significant proteinuria, complicating the puerperium; Z87.59 Personal history of other complications of pregnancy, childbirth and the puerperium; Z39.2 Encounter for routine postpartum follow-up
CPT/HCPCS: 36415; 80053; 85027

== ENCOUNTER 2023-01-20 16:46 | Outpatient (REF) | payer BC, SELFPAY ==
[2023-01-20 15:47] LABS: TSH 0.82 uIU/mL (0.36-3.74)
== END 2023-01-20 16:47 | disposition home or self-care (01) ==
LOC: NCHCN 16:46
PROVIDERS: PCP Physician Assistant; Visit Provider Physician Assistant
DX: E03.9 Hypothyroidism, unspecified (principal)
CPT/HCPCS: 84443

== ENCOUNTER 2023-12-12 05:08 | Outpatient (CLI) | payer BC, SELFPAY ==
[2023-12-12 11:07] LABS: Panorama Kit Sent via Fed Ex
[2023-12-12 11:17] LABS: Abs Immature Grans 0.02 10^3/uL (0.0-0.06); Absolute Basophil Count 0.03 10^3/uL (0.0-0.2); Absolute Eosinophil Count 0.12 10^3/uL (0.0-0.7); Absolute Lymphocyte Count 2.01 10^3/uL (1.2-3.4); Absolute Monocyte Count 0.44 10^3/uL (0.1-0.8); Absolute Neutrophil Count 5.44 10^3/uL (1.2-6.7); Basophils % 0.4 %; Eosinophils % 1.5 %; HCT 39.2 % (36.0-46.0); HGB 13.4 g/dL (11.2-15.7); Immature Grans % 0.2 %; Lymphocytes % 24.9 %; MCH 30.4 pg (27.0-33.0); MCHC 34.2 % (32.0-36.0); MCV 89 fL (80-95); MPV 9.2 fL (8.0-11.0); Monocytes % 5.5 %; Neutrophils % 67.5 %; Platelet Count 257 10^3/uL (130-400); RBC 4.41 10^6/uL (3.93-5.22); RDW 12.1 % (11.7-14.6); RDW-SD 39.8 fL; WBC 8.06 10^3/uL (4.4-10.8)
[2023-12-12 12:12] LABS: ALT 22 U/L (14-59); AST 16 U/L (15-37); Albumin 3.6 g/dL (3.4-5.0); Alkaline Phosphatase 52 U/L (46-116); Anion Gap 9.3 mmol/L (3-11); BUN 9 mg/dL (7-18); Bilirubin, Total 0.3 mg/dL (0.2-1.0); CO2 24.7 mmol/L (21.0-32.0); CREATININE 0.6 mg/dL (0.55-1.02); Calcium 8.6 mg/dL (8.5-10.1); Chloride 104 mmol/L (98-107); Estimated GFR 122.23 (mL/min/1.73m2); Glucose 90 mg/dL (74-106); Potassium 3.9 mmol/L (3.5-5.1); Sodium 138 mmol/L (136-145); TSH (W/Ref FT4) 1.27 uIU/mL (0.36-3.74); Total Protein 7.3 g/dL (6.4-8.2)
[2023-12-12 18:34] LABS: Hepatitis B Surface Ag Negative (Negative)
[2023-12-12 19:02] LABS: Hepatitis C Ab w Rflx HCV PCR Negative (Negative)
[2023-12-12 19:08] LABS: HIV-1/2 Ag & Ab Screen Negative (Negative)
[2023-12-15 15:31] LABS: Rubella IgG Ab (UVM) Positive (See Note); Varicella IgG Antibody Positive (See Note)
[2023-12-15 16:11] LABS: Syphilis IgG w/Reflex Nonreactive (Nonreactive)
== END 2023-12-12 05:09 | disposition home or self-care (01) ==
LOC: LBO 05:08
PROVIDERS: Advanced Practice Midwife; PCP Physician Assistant; Visit Provider Advanced Practice Midwife
DX: Z34.91 Encounter for supervision of normal pregnancy, unspecified, first trimester (principal); Z87.59 Personal history of other complications of pregnancy, childbirth and the puerperium; Z86.79 Personal history of other diseases of the circulatory system; Z3A.12 12 weeks gestation of pregnancy
CPT/HCPCS: 36415; 80053; 86787; 86803; 86850; 86900; 86901; 87340; 87389; 84443; 85025; 86762; 86780

== ENCOUNTER 2023-12-12 10:51 | Outpatient (REF) | payer BC, SELFPAY ==
[2023-12-13 14:48] LABS: Chlamydia Result Negative (Negative); GC Result Negative (Negative)
== END 2023-12-12 10:52 | disposition home or self-care (01) ==
LOC: LBN 10:51
PROVIDERS: PCP Physician Assistant; Visit Provider Advanced Practice Midwife
DX: Z34.90 Encounter for supervision of normal pregnancy, unspecified, unspecified trimester (principal); B96.89 Other specified bacterial agents as the cause of diseases classified elsewhere
CPT/HCPCS: 87491; 87591; 87086

== ENCOUNTER 2024-02-23 03:53 | Outpatient (CLI) | payer BC, SELFPAY ==
[2024-02-23 14:32] LABS: TSH (W/Ref FT4) 1.25 uIU/mL (0.36-3.74)
== END 2024-02-23 03:54 | disposition home or self-care (01) ==
LOC: LBO 03:54
PROVIDERS: Advanced Practice Midwife; PCP Physician Assistant; Visit Provider Advanced Practice Midwife
DX: E03.9 Hypothyroidism, unspecified (principal)
CPT/HCPCS: 36415; 84443

== ENCOUNTER 2024-04-02 02:16 | Outpatient (CLI) | payer BC, SELFPAY ==
[2024-04-02 11:08] LABS: HCT 35.7 % (36.0-46.0); HGB 11.9 g/dL (11.2-15.7); MCH 30.8 pg (27.0-33.0); MCHC 33.3 % (32.0-36.0); MCV 93 fL (80-95); MPV 8.8 fL (8.0-11.0); Platelet Count 207 10^3/uL (130-400); RBC 3.86 10^6/uL (3.93-5.22); RDW 12.4 % (11.7-14.6); RDW-SD 41.8 fL; WBC 9.78 10^3/uL (4.4-10.8)
[2024-04-02 11:20] LABS: Glucose,1 Hr (Glucola) 100 mg/dL (80-140)
== END 2024-04-02 02:17 | disposition home or self-care (01) ==
LOC: LBO 02:16
PROVIDERS: PCP Physician Assistant; Visit Provider Advanced Practice Midwife
DX: Z34.93 Encounter for supervision of normal pregnancy, unspecified, third trimester (principal); O26.893 Other specified pregnancy related conditions, third trimester; Z67.91 Unspecified blood type, Rh negative
CPT/HCPCS: 36415; 82950; 85027; 86850; 90384

== ENCOUNTER 2024-04-30 01:23 | Outpatient (CLI) | payer BC, SELFPAY ==
[2024-04-30 14:08] LABS: TSH (W/Ref FT4) 0.87 uIU/mL (0.36-3.74)
== END 2024-04-30 01:24 | disposition home or self-care (01) ==
LOC: LBO 01:23
PROVIDERS: PCP Physician Assistant; Visit Provider Advanced Practice Midwife
DX: Z34.93 Encounter for supervision of normal pregnancy, unspecified, third trimester (principal); E03.9 Hypothyroidism, unspecified
CPT/HCPCS: 36415; 84443

== ENCOUNTER 2024-05-28 10:26 | Outpatient (REF) | payer BC, SELFPAY | END 2024-05-28 10:27 | disposition home or self-care (01) | LOC: LBN 10:26 | PROVIDERS: PCP Physician Assistant; Visit Provider Advanced Practice Midwife | DX: Z34.93 Encounter for supervision of normal pregnancy, unspecified, third trimester (principal) | CPT/HCPCS: 87186; 87081 ==

== ENCOUNTER 2024-06-21 13:26 | Outpatient (REF) | payer BC, SELFPAY ==
[2024-06-21 14:55] LABS: COMMENT (LAB VIEW ONLY) 37.19 mg/dL; PROTEIN 10.3 mg/dL; Prot/Crea Ur Ratio 0.27
== END 2024-06-21 13:27 | disposition home or self-care (01) ==
LOC: LBN 13:26
PROVIDERS: PCP Physician Assistant; Visit Provider Advanced Practice Midwife
DX: Z34.93 Encounter for supervision of normal pregnancy, unspecified, third trimester (principal)
CPT/HCPCS: 82565; 84156

== ENCOUNTER 2024-06-25 07:45 | Outpatient (CLI) | payer BC, SELFPAY ==
[2024-06-25 12:42] VITALS: BP 128/83; PULSE 87; TEMP 36.8
[2024-06-25 12:53] VITALS: BP 128/83; PULSE 87
--- NOTE | 2024-06-25 17:15 | W.OBNST ---
Date of service: 06/25/24 Time of Service: 17:16 NST Evaluation Reason for NST Reasons for Nonstress Test: GESTATIONAL HYPERTENSION Gestational Age Gestational Age in Weeks and Days: 40 Weeks and 0Days Test and Monitor Explained Test/Monitor Explained: Test Explained, Monitor Explained and Patient Verbalized Understanding Vital Signs Blood Pressure: 128/83 Pulse: 87 Temperature: 98.2 F NST Information Date on Monitor: 06/25/24 Time on Monitor: 12:43 Date off Monitor: 06/25/24 NST Interventions: None NST Evaluation Patient States Movement: Present FHR Baseline: 130 Variability: Moderate 6-25 bpm Accelerations: 15x15 Decelerations: None NST Results: Reactive Note Ultrasound Done: N/A. NST Note Note: Reactive NST at 40wks with normal BP check. 2 contractions in 20 minute tracing observed and not felt by patient. Scheduled for NST + SLOANE in 1 week at 41wks. We briefly discussed IOL by 42wks if not already delivered. Would like SVE at next visit NST Reviewed and Verified by: Flower Mak
[2024-06-25 17:18] VITALS: BP 128/83; PULSE 87; TEMP 36.8
== END 2024-06-25 13:16 | disposition other institution (70) ==
LOC: BCD 07:46 → OBS 12:37
PROVIDERS: PCP Physician Assistant; Visit Provider Advanced Practice Midwife
DX: O13.3 Gestational [pregnancy-induced] hypertension without significant proteinuria, third trimester (principal); Z3A.40 40 weeks gestation of pregnancy
CPT/HCPCS: 59025; 00123

== ENCOUNTER 2024-07-01 15:35 | Inpatient (IN) | payer BC, SELFPAY ==
[2024-07-01] VITALS (19 sets, daily range): BP systolic 114–146; BP diastolic 64–88; PULSE 0–120; RESP 16; TEMP 36.6–36.9; O2SAT 97–99
--- NOTE | 2024-07-01 14:19 | HPE_ITS ---
Date of service: 07/01/24 Time of Service: 14:19 Assessment and Plan Assessment and plan (1) Normal labor: Status: Acute Assessment and plan: A: 34 yo @ 40+6 wks, spontaneous onset labor, Early labor and coping well at this time, normotensive and afebrile Category 1 tracing overall, initial variable decel x2 noted with cntrx, resolved with maternal position change GBS+, hx childhood hive reaction to PCN, prophylaxis with Ancef is planned Low risk for SD or PPH; taking low dose ASA d/t hx HTN previous delivery Hypothyroidism treated and controlled with levothyroxine 100 mcg daily Rh negative, received RhoGam at 28 wks P: Admit to BC but remains outpatient until dilation advances >5 cm Draw CBC, T&S, give loading dose Ancef 2 gm IV Comfort measures and PO intake as pt desires, planning unmedicated delivery (2) Group B Streptococcus carrier, antepartum: Status: Acute Assessment and plan: Ancef 2 gm IV loading dose, then 1 gm IV q8 hrs until delivery (3) Acquired hypothyroidism: Status: Acute Assessment and plan: Levothyroxine 100 mcg daily, TSH has been WNL throughout OB-HPI Labor/Delivery History of Present Illness Reason for Visit: NST Chief Complaint: Uterine Contractions (Contractions since 1030 today, became more regular and frequent at 1230, no bleeding, no ROM). MIO Calculator Estimated Delivery Date Method Current WG Current Estimate 06/25/24 LMP (Certain) 40w 6d Other Estimates 06/25/24 Ultrasound #1 40w 6d History of Present Expected Delivery Route/Plan - CNM FOB - Sukhjinder Lacriox (2nd baby together) BG Plans unmedicated GBS pos. - prophylaxis in labor-Clindamycin resistant, Ancef 2 g IV then 1 g Q8hrs Specific Issues/Plan 1. Janet's sister has CF; SMA previously neg. Janet is CF carrier; FOB tested and is negative, cfDNA=low risk female, AFP declined 2. Hypothyroidism - On Levothyroxine: Check labs q trimester. @ 12 wks TSH=1.27; @ 22 wks -1.25; @ 32 wks=0.87 3. History of Depression no meds currently 4. History of abnormal pap 5. Rh neg, Rhogam at 28 wks 04/02/24 7. BMI 30.0 at initial OB, declines early glucola after informed choice discussion 8. History of Right vulvar varicosity; now feels bilateral 8a. @ 30 wks varicosities are painful 9. History of gestational hypertension post - ASA daily at 12 weeks. 10. hemorrhoids and labial varicosities- colace QOD, and drinking green juice. Assessment: History Reviewed & Current Review of Systems Narrative: ROS completed and noncontributory other than HPI PFSH All Active Problems (Updated 07/01/24 @ 14:37 by Chelsie Loera) Group B Streptococcus carrier, antepartum (Acute) Normal labor (Acute) Rh negative state in antepartum period (Acute) BMI 30.0-30.9,adult (Acute) (Acute) Cystic fibrosis carrier, antepartum (Acute) FOB is carrier negative Acquired [facility]Acute) [facility] History (Updated 07/01/24 @ 14:37 by Chelsie Loera) Missed menses History of abnormal cervical Pap smear History of gestational hypertension Family history of colon cancer Father Dx at 55 and Family history of cystic fibrosis sister Positive test Depression Asthma Surgical History S/P tonsillectomy and adenoidectomy 2013 Family History Father Colon cancer Hypertension Mother Shazia's disease Gestational hypertension Sister Cystic fibrosis Paternal Grandmother Hypothyroid Stomach cancer Paternal Grandfather Stroke Maternal Aunt Hypothyroid Social History Smoking/Tobacco Use Status: Never Smoking risk assessment performed?: Yes Do you feel safe at home: Yes Do you feel safe in your relationship?: Yes History History 2 Para 1 Hx # Term Pregnancies 1 Multiple births 0 Hx # Pregnancies 0 Ectopic pregnancies 0 AB induced 0 Hx Number of Living Children 1 AB spontaneous 0 Past Pregnancies Del. Date GA/Weeks # Preg Succ Route Wgt Sex Labor Lgth Anesth esia Location Prov Complic 08/23/22 40 No Yes vaginal 7 lb 13.57 oz Female 10hrs 59min K.Mulkern,CNM Delivery Date: 08/23/22 Last Updated by: SHAINA Wang Post hypertension. Labetalol 200 mg x 1 day. Stopped due to hypotension. Meds Allergies and Home Medications Allergies Allergy/AdvReac Type Severity Reaction Status Date / Time Penicillins Allergy Mild rash Unverified 06/21/24 11:19 Home Medications ?Medication ?Instructions ?Recorded ?Confirmed ?Type prenat.vits,maria teresa,[id number] 1 tab PO DAILY 12/14/21 06/07/24 History albuterol sulfate 90 mcg/actuation 2 puff inhalation Q6H PRN 05/24/22 06/07/24 Rx aerosol inhaler shortness of breath or wheezing #6.7 grams aspirin 81 mg tablet,delayed 81 mg PO DAILY 01/09/24 06/07/24 History release (Adult Low Dose Aspirin) docusate sodium 100 mg capsule 100 mg PO BID #60 caps 04/16/24 06/07/24 Rx (Colace) levothyroxine 100 mcg tablet 100 mcg PO DAILY #60 tabs 06/26/24 Rx Exam Physical Exam Vital signs: Pulse BP 76 138/86 07/01/24 13:59 07/01/24 13:59 Vital Signs Reviewed: Yes Constitutional Constitutional: mild distress, average body habitus and cooperative Detailed Labor and Delivery Exam Dilation: 4 Effacement (%): 80 station: -3 Cervix position: mid Consistency: soft FELIX Score(Cervical Ripeness Score): 8 Amniotic Membrane Status: Intact (soft forebag palpable) Contraction Frequency(min): q5-6 Contraction Duration(sec): 60 Contraction Intensity: Moderate Fetus A Heart Rate Baseline: 140 Monitor Accelerations: Present Monitor Decelerations: None and Variable Variability: Moderate (6-25 BPM) Categories: Category I Est. Weight: 8 lb 2.514 oz Est. Weight: 3700 gms HEENT Exam HEENT Exam: Normal Neck Exam Neck Exam: Normal Chest/Brest/Axilla Exam Chest Exam: Normal Breast Exam Breast Exam: Not Done Respiratory Exam Respiratory Exam: Normal Cardiovascular Exam Cardiovascular Exam: Normal Abdominal Exam Abdominal Exam: Normal (Gravid, nontender, ) Rectal Exam Rectal Exam: Normal Exam Exam: Normal Extremities Exam Extremities Exam: Normal Back/Spine/Pelvis Exam Back Exam: Normal Pelvis Adequate: Yes (proven to 7'14) Skin Exam Skin Exam: Normal Neurological Exam Neurological Exam: Normal Psychiatric Exam Psychiatric Exam: Normal Results Results Group Beta Strep: Positive Blood Type: O- Rubella Status: Immune Varicella Immunity: Immune Risk Assessment Risk for Shoulder Dystocia Historical/Initial OB: POSITIVE FOR: Pre- BMI>30; NEGATIVE FOR: Pelvic Abnormality, Previous Shoulder Dystocia or Previous Macrosomia 36 Weeks: NEGATIVE FOR: Current Gestational DM, EFW>4500gms or Maternal Weight Gain>40lbs 40 Weeks: NEGATIVE FOR: EFW> 4500 gms, Maternal Weight Gain >40lb or Post Dates Increased Risk?: No Delivery Plan @ 36wks: Delivery Plan @ 40 wks: Risk for Pre-Eclampsia Daily Dose ASA Indicated: Yes Date Initiated/Initials: JR Yes, if one or more: POSTIVE FOR: Hx Pre-E/Gest HTN; NEGATIVE FOR: Chronic HTN, Multiple Gestation, Pre-gestational DM, Renal Disease, Systemic Lupus or APA Syndrome Yes, if 2 or more: POSITIVE FOR: BMI>30; NEGATIVE FOR: Nulliparity, Age>= 35 yrs, >10yr btwn pregnancies, ethinicty, Mother/Sister w/ Pre-E or Previous IUGR Risk for Post- Hemorrhage Initial: NEGATIVE FOR: Multiple Gestation, Previous PPH, Known Clotting Deficiency, Grand Multiparity or Anticoagulation 36 Weeks: NEGATIVE FOR: Anemia, hgb<10, Low platelets(thrombocytopenia), Gestational HTN or Pre-E, Polyhydraminios or EFW>4500gms 40 Weeks: NEGATIVE FOR: Anemia, hgb<10, Low platelets (thrombocytopenia), Gestation HTN or Pre-E, Polyhydraminios or EFW>4500gms At Risk?: No Counseled re: Active Management: Yes Risks Reviewed Risks Reviewed Upon Admission: Yes
[2024-07-01] MEDS: ceFAZolin 2 GM/50 ML BAG IVPB (14:36)
[2024-07-01 15:18] LABS: HCT 36.6 % (36.0-46.0); HGB 12.7 g/dL (11.2-15.7); MCH 30.6 pg (27.0-33.0); MCHC 34.7 % (32.0-36.0); MCV 88 fL (80-95); MPV 10.1 fL (8.0-11.0); Platelet Count 198 10^3/uL (130-400); RBC 4.15 10^6/uL (3.93-5.22); RDW 12.1 % (11.7-14.6); RDW-SD 38.6 fL; WBC 9.56 10^3/uL (4.4-10.8)
[2024-07-01] MEDS: Oxytocin/Normal Saline 30 UNIT/500 ML BAG 334 UNITS IV (17:45)
--- NOTE | 2024-07-01 18:04 | OBVDS_ITS ---
Date of service: 07/01/24 Time of Service: 18:04 OB Labor/ Delivery Information Baby A Delivery Delivery Method: Spontaneaous Presentation: Cephalic Cephalic Position: Vertex Vertex Position: Right Occipital Anterior Breech Position: N/A Cord Description-Baby A: 3 Vessels and Nuchal Cord (snug, unable to reduce overhead, anterior shoulder and body delivered through cord loop) Amniotic Fluid: Clear Estimated Blood Loss: 300 Delivery Outcome: Liveborn Transferred: Remains with Mother Note: Pt requested AROM @ 9 cm dilation, vtx -1, clear fluid obtained and palpable descent noted, pt continued moving around the room, sitting on toilet, standing, hands and knees on bed, eventually delivering in semi fowlers. FHT's remained reassuring per doptone throughout 2nd stage, anterior lip manually reduced during excellent maternal expulsive efforts, over intact perineum of vigorous female , nuchal cord noted snug, unable to reduce over head, loop pushed back over anterior shoulder which delivered easily then body delivered through cord loop. Brief stim and bulb sx on field then infant handed to mother arms, strong family bonding observed. One gush of blood noted as pitocin bolus IV was begun, cord clamped and cut by both grandmother and FOB together, cord blood collected and [place] placenta delivered intact with 3VC, fundus firm with minimal rubra, vulva and vagina inspected and found to be intact without significant laceration. Apgars 7/9, weight 3525 gms. Providers Nurse Customer Experience Associate: Chelsie Loera Nurse: Gloria Benjamin Nurse: Noah Flores Labor/Delivery Information Number of Babies in Womb: 1 Steroids Given: None Reason Steroids Not Administered: N/A Group Beta Strep: Positive Antibiotics Administered: Yes Number of Doses of Antibiotics: 1 (2 gm Ancef infused at 1530) Rubella Status: Immune Blood Type: O- Varicella Immunity: Immune Maternal Complications: None Shoulder Dystocia: No Stages of Labor Onset of Labor Date: 07/01/24 Onset of Labor Time: 10:30 Complete Dilatation Date: 07/01/24 ROM Baby A: 07/01/24 ROM Baby A: 17:02 Infant Delivery Date-Baby A: 07/01/24 Delivery Time-Baby A: 17:45 Placenta Delivery Date-Baby A: 07/01/24 Placenta Delivery Time-Baby A: 17:51 Labor-Stage 3 Duration: 6 minutes Total Length of Labor-Baby A: 7 hours and 15 minutes Placenta Status: Delivered Baby A Infant Gender: Female Gestational Status: Term (39-41.6 wks) Gestational Age in Weeks/Days: 40 Weeks and 6 Days weight: 7 lb 12.341 oz Weight Comment: 3525 gms Length-Baby A: 20.87 in Score-1 Minute Interval(Baby A) Heart Rate-1 minute: 100 BPM or Greater Respiratory Effort- 1 minute: Spontaneous/Strong Cry Muscle Tone-1 minute: Minimal Flexion/Extension Reflex Response-1 minute: Minimal Response Color-1 minute: Bluish Hands or Feet Total Score-1 minute: 7 Score-5 Minute Interval(Baby A) Heart Rate- 5 minute: 100 BPM or Greater Respiratory Effort-5 minute: Spontaneous/Strong Cry Muscle Tone-5 minute: Active Movement Reflex Response-5 minute: Prompt Response Color-5 minute: Bluish Hands or Feet Total Score- 5 minute: 9 Procedure Procedures: Cord Blood Collection
[2024-07-01] MEDS: Oxytocin 10 UNITS/ML VIAL (18:20)
[2024-07-01] MEDS: Acetaminophen 325 MG TAB 650 MG PO (18:48)
[2024-07-01] MEDS: Ibuprofen 600 MG TAB PO (18:48)
[2024-07-01] MEDS: Dibucaine 1% 28 GM TUBE TP (19:27)
[2024-07-01] MEDS: Hamamelis Leaf/Glycerin 100 EACH BOX PR (19:28)
[2024-07-02] MEDS: Ibuprofen 600 MG TAB PO ×3 (01:36→14:24)
[2024-07-02] MEDS: Acetaminophen 325 MG TAB 650 MG PO ×4 (01:37→17:26)
[2024-07-02] MEDS: Docusate Sodium 100 MG CAP PO ×2 (01:37→14:24)
[2024-07-02] MEDS: Levothyroxine 100 MCG TAB PO (06:13)
[2024-07-02 08:43] VITALS: BP 133/88; PULSE 92; RESP 18; TEMP 36.8
--- NOTE | 2024-07-02 10:00 | W.PM.OBPNV1 ---
Date of service: 07/02/24 Time of Service: 10:00 Assessment and Plan Assessment and plan (1) Term delivered: Status: Acute Assessment and plan: A: PPD#1, nml recovery, satisfied with experience off to a good start P: Plan for discharge tomorrow morning RhoGam to be given if indicated BCM plan is vasectomy, will discuss interim plan Routine care and support Subjective Subjective Patient comments: No complaints, Pain well controlled, Tolerating diet and Flatus present Patient's Mood: happy baby status: Doing well, Nursing well, Rooming in and Strong Bonding Observed feeding status: Exclusively breast feeding Exam Physical Exam Vital signs: Temp Pulse Resp BP Pulse Ox 98.2 F 92 H 18 133/88 97 07/02/24 08:43 07/02/24 08:43 07/02/24 08:43 07/02/24 08:43 07/01/24 21:04 Vital Signs Reviewed: Yes Constitutional Constitutional: no acute distress, average body habitus and cooperative HEENT Exam HEENT Exam: Normal Neck Exam Neck Exam: Normal Breast Exam Bilateral: Breast Exam: Normal and Soft Nipple Exam: Normal and Uninjured Respiratory Exam Respiratory Exam: Normal Cardiovascular Exam Cardiovascular Exam: Normal Abdominal Exam Abdomen: Other (soft, nontender) Fundal Exam Fundus: Below Umbilicus and Firm Rectal Exam Rectal Exam: Normal Exam Perineum: Intact Extremities Exam Extremity Exam: Normal, Full ROM and Warm to Touch Back/Spine/Pelvis Exam Back Exam: Normal Skin Exam Skin Exam: Normal Neurological Exam Neurological Exam: Normal Psychiatric Exam Psychiatric Exam: Normal Results Hemoglobin/Hematocrit: Hgb 12.7 g/dL (11.2-15.7) 07/01/24 15:10 Hct 36.6 % (36.0-46.0) 07/01/24 15:10
[2024-07-02 12:26] VITALS: BP 123/74; PULSE 67; RESP 16
[2024-07-02 20:25] VITALS: BP 140/76; PULSE 78; RESP 18; TEMP 36.8
[2024-07-03] MEDS: Ibuprofen 600 MG TAB PO ×2 (00:57→09:17)
[2024-07-03] MEDS: Acetaminophen 325 MG TAB 650 MG PO ×3 (00:57→11:04)
[2024-07-03 04:19] VITALS: BP 109/71; PULSE 58; RESP 18
[2024-07-03] MEDS: Levothyroxine 100 MCG TAB PO (06:19)
[2024-07-03] MEDS: Docusate Sodium 100 MG CAP PO (09:17)
--- NOTE | 2024-07-03 09:30 | W.PM.OBPNV1 ---
Date of service: 07/03/24 Time of Service: 09:30 Assessment and Plan Assessment and plan (1) Term delivered: Status: Acute Assessment and plan: A: PPD#2, nml recovery, going well P: Plan for discharge today RhoGam to be given prior to discharge Considering POP's until vasectomy is done Written instructions reviewed and given to pt F/up @ 2 & 6 wks with mine wirer Subjective Subjective Patient comments: No complaints, Pain well controlled, Tolerating diet and Flatus present Patient's Mood: pleased [place] baby status: Doing well, Nursing well, Rooming in and Strong Bonding Observed [place] feeding status: Exclusively breast feeding Exam Physical Exam Vital signs: Temp Pulse Resp BP Pulse Ox 98.2 F 58 L 18 109/71 97 07/02/24 20:25 07/03/24 04:19 07/03/24 04:19 07/03/24 04:19 07/01/24 21:04 Vital Signs Reviewed: Yes Constitutional Constitutional: no acute distress, average body habitus and cooperative HEENT Exam HEENT Exam: Normal Neck Exam Neck Exam: Normal Breast Exam Bilateral: Breast Exam: Normal and Soft Respiratory Exam Respiratory Exam: Normal Cardiovascular Exam Cardiovascular Exam: Normal Abdominal Exam Abdomen: Other (soft, nontender) Fundal Exam Fundus: Below Umbilicus and Firm Rectal Exam Rectal Exam: Normal Exam Perineum: Intact Extremities Exam Extremity Exam: Normal, Full ROM and Warm to Touch Back/Spine/Pelvis Exam Back Exam: Normal Skin Exam Skin Exam: Normal Neurological Exam Neurological Exam: Normal Psychiatric Exam Psychiatric Exam: Normal Results Hemoglobin/Hematocrit: Hgb 12.7 g/dL (11.2-15.7) 07/01/24 15:10 Hct 36.6 % (36.0-46.0) 07/01/24 15:10 Hemorrrhage Note IV Site Right Antecubital: IV Catheter Gauge: 20
--- NOTE | 2024-07-03 09:33 | W.PM.OBDISCH ---
Date of service: 07/03/24 Time of Service: 09:33 DS: Diagnosis Discharge Diagnosis (1) Term delivered: Status: Acute Discharge Plan Disposition Patient Disposition: Home Condition: Good Discharge Details Reason For Visit: NST Admit Date/Time: 07/01/24 15:35 Admit Provider: Chelsie Loera Attending Provider: Chelsie Loera Primary Care Provider: Car Garibay Hospital Course Hospital Course: Admitted for active labor, within 4 hours, nml recovery Home Meds and New Rx's Prescriptions: No Action prenat.vits,maria teresa,[id number] Tablet 1 tab PO DAILY albuterol sulfate 90 mcg/actuation HFA aerosol inhaler 2 puff inhalation Q6H PRN (Reason: shortness of breath or wheezing) Qty: 6.7 0RF docusate sodium [Colace] 100 mg capsule 100 mg PO BID Qty: 60 3RF levothyroxine 100 mcg tablet 100 mcg PO DAILY Qty: 60 3RF Discharge Instructions Additional Instructions: Please keep 2 and 6 week appointments with the farm service adviser, call for any and all concerns. Stand Alone Forms: BC Instructions, BC Post Vaginal Deliver Activity:: Activity as Tolerated Equipment/Supplies:: No Equipment Needed Diet:: Normal Diet OB:DS Summary Summary Vaginal Delivery Method: Spontaneaous Episiotomy Description: None Laceration Description: None Laceration Extension: N/A Contraception Discussed Contraception Discussed: Yes Contraceptive Plan: Control Pill/Patch and Vasectomy, [place] Gender-Baby A: Female weight: 7 lb 12.341 oz Status at Discharge Functional status at discharge: independent ambulation Overall status at discharge: patient is progressing back to baseline Mental Status: mental status grossly normal Speech and Movement: speech and movement normal and speech clear Mood: congruent mood Affect: normal affect Quality:SDOH Health Related Social Needs: No Data to Display Exam Physical Exam Vital signs: Temp Pulse Resp BP Pulse Ox 98.2 F 58 L 18 109/71 97 07/02/24 20:25 07/03/24 04:19 07/03/24 04:19 07/03/24 04:19 07/01/24 21:04 Constitutional Constitutional: no acute distress, average body habitus and cooperative HEENT Exam HEENT Exam: Normal Neck Exam Neck Exam: Normal Breast Exam Bilateral: Breast Exam: Normal and Soft Respiratory Exam Respiratory Exam: Normal Cardiovascular Exam Cardiovascular Exam: Normal Abdominal Exam Abdomen: Other (soft, nontender) Fundal Exam Fundus: Below Umbilicus and Firm Rectal Exam Rectal Exam: Normal Exam Perineum: Intact Extremities Exam Extremity Exam: Normal, Full ROM and Warm to Touch Back/Spine/Pelvis Exam Back Exam: Normal Skin Exam Skin Exam: Normal Neurological Exam Neurological Exam: Normal Psychiatric Exam Psychiatric Exam: Normal PFSH All Active Problems (Updated 07/02/24 @ 10:02 by Chelsie Loera) Term delivered (Acute) BMI 30.0-30.9,adult (Acute) Acquired hypothy[facility] (Acute) [facility] Medical History (Updated 07/02/24 @ 10:02 by Chelsie Loera) Rh negative state in antepartum period Cystic fibrosis carrier, antepartum FOB is carrier negative Normal labor Group B Streptococcus carrier, antepartum Missed menses History of abnormal cervical Pap smear History of gestational hypertension Family history of colon cancer Father Dx at 55 and Family history of cystic fibrosis sister Positive test Depression Asthma Surgical History S/P tonsillectomy and adenoidectomy 2013 Family History Father Colon cancer Hypertension Mother Shazia's disease Gestational hypertension Sister Cystic fibrosis Paternal Grandmother Hypothyroid Stomach cancer Paternal Grandfather Stroke Maternal Aunt Hypothyroid Social History Smoking/Tobacco Use Status: Never Smoking risk assessment performed?: Yes Alcohol Intake: never Housing: house Do you feel safe at home: Yes Do you feel safe in your relationship?: Yes History History 2 Para 1 Hx # Term Pregnancies 1 Multiple births 0 Hx # Pregnancies 0 Ectopic pregnancies 0 AB induced 0 Hx Number of Living Children 1 AB spontaneous 0 Past Pregnancies Del. Date GA/Weeks # Preg Succ Route Wgt Sex Labor Lgth Anesthesia Location Prov Complic 08/23/22 40 No Yes vaginal 7 lb 13.57 oz Female 10hrs 59min SHAINA Das Delivery Date: 08/23/22 Last Updated by: SHAINA Wang Post hypertension. Labetalol 200 mg x 1 day. Stopped due to hypotension. DS: Data Vitals/I&O Vitals and I&O: Vital Signs Temperature 98.2 F 07/02/24 20:25 Temperature 98.4 F 07/01/24 13:51 Temperature Source Oral 07/02/24 20:25 Pulse 58 L 07/03/24 04:19 Pulse 76 07/01/24 13:51 Pulse Rhythm Regular 07/02/24 20:25 Respiratory Rate 18 07/03/24 04:19 Blood Pressure 109/71 07/03/24 04:19 Blood Pressure 138/86 07/01/24 13:51 Blood Pressure Mean 83 07/03/24 04:19 Pulse Oximetry 97 07/01/24 21:04 Oxygen Delivery Method Room Air 07/01/24 14:40 Oxygen Flow Rate 0 07/01/24 14:40 Pain Level 4 07/03/24 00:57 Intake & Output 07/02/24 07/02/24 07/03/24 11:59 23:59 11:59 Intake Total 194.833 / 194.833 Output Total 500 / 500 Balance -305.167 / -305.167 Intake: IV 194.833 / 194.833 Output: Urine 500 / 500 Other: Urine Color Yellow Pale Bright Red Data Completed and Pending Labs on day of discharge: Labs from last 24 hours 07/02/24 07/01/24 06:00 15:10 Screen Negative Rhogam Unit Number [id number] Unit Expiration Date 08/25/24 Product Lot # [id number]
[2024-07-03] MEDS: RHO(D) Immune Globulin 1,500 UNIT Syringe 1500 UNIT IM (10:13)
[2024-07-03 10:23] VITALS: BP 126/78; PULSE 69; RESP 16; TEMP 36.7
== END 2024-07-03 11:17 | disposition home or self-care (01) | DRG 807 ==
LOC: OBS 17:38
PROVIDERS: Admitting Provider Advanced Practice Midwife; PCP Physician Assistant; Visit Provider Advanced Practice Midwife
DX: O99.824 Streptococcus B carrier state complicating childbirth; Z37.0 Single live birth; Z3A.40 40 weeks gestation of pregnancy; O99.284 Endocrine, nutritional and metabolic diseases complicating childbirth; O69.1XX0 Labor and delivery complicated by cord around neck, with compression, not applicable or unspecified; O26.893 Other specified pregnancy related conditions, third trimester; O87.8 Other venous complications in the puerperium; Z67.91 Unspecified blood type, Rh negative; E03.9 Hypothyroidism, unspecified; Z14.1 Cystic fibrosis carrier
CPT/HCPCS: 36415; 85027; 85461; 86850; 86900; 86901; 90384; 59025; 86870; J0690; J2590; J2790

== ENCOUNTER 2024-08-25 10:20 | Outpatient (REF) | payer OTHER, SELFPAY ==
--- NOTE | 2024-08-25 10:00 | PAPFT_PTH ---
PATIENT: Janet Hernandez LOC: [facility] U#:[id number] AGE/SX: 34/F ROOM: RE08/25/[address]: Chelsie Loera CNM : 1990 BED: DIS: 08/25/2024 SPEC #: [id number] RECD: 08/25/24 13:01 STATUS: EARNESTINE REHu #: [id number] ZARINA: 08/25/24 10:[address]: Chelsie Loera DEPT: [facility] Cytology RECD BY: Miranda Pimentel ENTERED: 08/25/24 13:01 SP TYPE: PAPFT OTHR DR: Car Garibay Tissues: 1 - CX/ENDOCX FOR PAP SMEARS Procedures: PAP THIN PREP/UVM Screening HPV DNA PROBE Comments: [id number] (HPV 16 & 18/45)
== END 2024-08-25 10:21 | disposition home or self-care (01) ==
LOC: LBN 10:20
PROVIDERS: PCP Physician Assistant; Visit Provider Advanced Practice Midwife
DX: Z39.2 Encounter for routine postpartum follow-up (principal); Z39.1 Encounter for care and examination of lactating mother; E03.9 Hypothyroidism, unspecified
CPT/HCPCS: 88142; 87624

== ENCOUNTER 2024-08-25 12:38 | Outpatient (CLI) | payer OTHER, SELFPAY ==
[2024-08-25 11:11] LABS: TSH (W/Ref FT4) 0.06 uIU/mL (0.36-3.74)
[2024-08-25 11:33] LABS: FREE T4 1.15 ng/dL (0.76-1.46)
== END 2024-08-25 12:39 | disposition home or self-care (01) ==
LOC: LBO 12:40
PROVIDERS: PCP Physician Assistant; Visit Provider Advanced Practice Midwife
DX: E03.9 Hypothyroidism, unspecified (principal); Z39.2 Encounter for routine postpartum follow-up
CPT/HCPCS: 36415; 84439; 84443

== ENCOUNTER 2024-09-30 15:47 | Outpatient (REF) | payer OTHER, BC, SELFPAY ==
[2024-09-30 16:02] LABS: TSH 0.86 uIU/mL (0.36-3.74)
== END 2024-09-30 15:48 | disposition home or self-care (01) ==
LOC: NCHCN 15:47
PROVIDERS: PCP Physician Assistant; Visit Provider Physician Assistant
DX: E03.9 Hypothyroidism, unspecified (principal)
CPT/HCPCS: 84443

== ENCOUNTER 2025-04-21 12:16 | Outpatient (REF) | payer BC, SELFPAY ==
[2025-04-21 14:40] LABS: HCT 40.2 % (36.0-46.0); HGB 13.3 g/dL (11.2-15.7); MCH 29.4 pg (27.0-33.0); MCHC 33.1 % (32.0-36.0); MCV 89 fL (80-95); MPV 9.9 fL (8.0-11.0); Platelet Count 282 10^3/uL (130-400); RBC 4.52 10^6/uL (3.93-5.22); RDW 11.8 % (11.7-14.6); RDW-SD 38.1 fL; WBC 5.59 10^3/uL (4.4-10.8)
[2025-04-21 15:09] LABS: ALT 20 U/L (14-59); AST 21 U/L (15-37); Albumin 4.1 g/dL (3.4-5.0); Alkaline Phosphatase 64 U/L (46-116); Anion Gap 10.1 mmol/L (3-11); BUN 15 mg/dL (7-18); Bilirubin, Total 0.5 mg/dL (0.2-1.0); CO2 25.9 mmol/L (21.0-32.0); Calcium 8.9 mg/dL (8.5-10.1); Chloride 104 mmol/L (98-107); Estimated GFR 116.31 (mL/min/1.73m2); Glucose 86 mg/dL (74-106); Potassium 4.1 mmol/L (3.5-5.1); Sodium 140 mmol/L (136-145); TSH 1.64 uIU/mL (0.36-3.74); Total Protein 7.2 g/dL (6.4-8.2)
== END 2025-04-21 12:17 | disposition home or self-care (01) ==
LOC: NCHCN 12:16
PROVIDERS: PCP Physician Assistant; Visit Provider Physician Assistant
DX: R53.83 Other fatigue (principal); E03.9 Hypothyroidism, unspecified
CPT/HCPCS: 80053; 85027; 84439; 84443